=== PATIENT | male | born 1950 | race Caucasian/White ===

== ENCOUNTER 2019-12-23 10:18 | Outpatient (CLI) | payer OTHER ==
[2019-12-23 10:30] LABS: BASOPHILS % (AUTO) 0.7 %; EOSINOPHILS # (AUTO) 0.1 10^3/uL (0.0-0.7); EOSINOPHILS % (AUTO) 1.9 %; HGB - HEMOGLOBIN 12.5 g/dL (14.0-18.0); LYMPHOCYTES # (AUTO) 0.8 10^3/uL (1.5-3.5); MEAN CORPUSCULAR HEMOGLOBIN 31.4 pg (27.0-31.0); MEAN CORPUSCULAR HGB CONC 33.6 g/dL (32.0-36.0); MEAN CORPUSCULAR VOLUME 93.5 fL (80.0-94.0); MONOCYTES # (AUTO) 0.4 10^3/uL (0.0-1.0); MONOCYTES % (AUTO) 6.3 %; NEUTROPHILS # (AUTO) 4.5 10^3/uL (1.5-6.6); NEUTROPHILS % (AUTO) 77.6 %; PLT - PLATELET COUNT 283 10^3/uL (130-450); RED BLOOD COUNT 3.98 10^6/uL (4.70-6.10); RED CELL DISTRIBUTION WIDTH 13.7 % (12.0-15.0); WHITE BLOOD COUNT 5.8 x10^3/uL (4.8-10.8)
[2019-12-23 10:43] LABS: ALBUMIN 4.1 g/dL (3.2-5.5); ALBUMIN/GLOBULIN RATIO 1.7 (1.0-2.2); BILIRUBIN,TOTAL 0.8 mg/dL (0.2-1.0); CALCIUM 8.9 mg/dL (8.5-10.3); CREATININE 0.9 mg/dL (0.6-1.2); TOTAL PROTEIN 6.5 g/dL (6.7-8.2)
[2019-12-26 20:41] LABS: BCR ABL1/ABL1 % (IS) 1.357 (0.000); SOURCE *BLOOD
== END 2019-12-23 10:19 | disposition home or self-care (01) ==
LOC: LAB 10:18
PROVIDERS: ATTEND Internal Medicine Hematology
DX: C92.10 Chronic myeloid leukemia, BCR/ABL-positive, not having achieved remission (principal)
CPT/HCPCS: 36415; 80053; 81206; 85025

== ENCOUNTER 2020-05-26 12:24 | Outpatient (CLI) | payer OTHER ==
[2020-05-26 12:54] LABS: BASOPHILS % (AUTO) 0.8 %; EOSINOPHILS # (AUTO) 0.2 10^3/uL (0.0-0.7); EOSINOPHILS % (AUTO) 2.8 %; HCT - HEMATOCRIT 38.2 % (42.0-52.0); HGB - HEMOGLOBIN 12.7 g/dL (14.0-18.0); LYMPHOCYTES # (AUTO) 0.8 10^3/uL (1.5-3.5); LYMPHOCYTES % (AUTO) 15.7 %; MEAN CORPUSCULAR HEMOGLOBIN 30.8 pg (27.0-31.0); MEAN CORPUSCULAR HGB CONC 33.2 g/dL (32.0-36.0); MEAN CORPUSCULAR VOLUME 92.5 fL (80.0-94.0); MEAN PLATELET VOLUME 9.1 fL (7.4-11.4); MONOCYTES # (AUTO) 0.5 10^3/uL (0.0-1.0); MONOCYTES % (AUTO) 8.9 %; NEUTROPHILS # (AUTO) 3.8 10^3/uL (1.5-6.6); NEUTROPHILS % (AUTO) 71.2 %; PLT - PLATELET COUNT 284 10^3/uL (130-450); RED BLOOD COUNT 4.13 10^6/uL (4.70-6.10); RED CELL DISTRIBUTION WIDTH 13.5 % (12.0-15.0); WHITE BLOOD COUNT 5.3 x10^3/uL (4.8-10.8)
[2020-05-26 13:07] LABS: ALBUMIN 4.1 g/dL (3.2-5.5); ALBUMIN/GLOBULIN RATIO 1.7 (1.0-2.2); BILIRUBIN,TOTAL 0.5 mg/dL (0.2-1.0); CALCIUM 9.2 mg/dL (8.5-10.3); CREATININE 0.9 mg/dL (0.6-1.2); POTASSIUM 3.8 mmol/L (3.5-5.0); TOTAL PROTEIN 6.5 g/dL (6.7-8.2)
[2020-05-26 15:06] LABS: ESTIMATED AVERAGE GLUCOSE 140 mg/dL (70-100); HEMOGLOBIN A1c% 6.5 % (4.27-6.07)
== END 2020-05-26 12:25 | disposition home or self-care (01) ==
LOC: LAB 12:24
PROVIDERS: ATTEND Family Medicine
DX: E11.9 Type 2 diabetes mellitus without complications (principal); C92.10 Chronic myeloid leukemia, BCR/ABL-positive, not having achieved remission
CPT/HCPCS: 36415; 80053; 81206; 81599; 83036; 85025

== ENCOUNTER 2020-08-28 13:12 | Outpatient (CLI) | payer MEDICARE, OTHER ==
[2020-08-28 13:35] LABS: BASOPHILS # (AUTO) 0.1 10^3/uL (0.0-0.1); BASOPHILS % (AUTO) 1.7 %; EOSINOPHILS # (AUTO) 0.2 10^3/uL (0.0-0.7); EOSINOPHILS % (AUTO) 2.8 %; HCT - HEMATOCRIT 39.6 % (42.0-52.0); HGB - HEMOGLOBIN 12.9 g/dL (14.0-18.0); LYMPHOCYTES # (AUTO) 1.3 10^3/uL (1.5-3.5); LYMPHOCYTES % (AUTO) 20.7 %; MEAN CORPUSCULAR HEMOGLOBIN 29.9 pg (27.0-31.0); MEAN CORPUSCULAR HGB CONC 32.6 g/dL (32.0-36.0); MEAN CORPUSCULAR VOLUME 91.9 fL (80.0-94.0); MEAN PLATELET VOLUME 9.4 fL (7.4-11.4); MONOCYTES # (AUTO) 0.5 10^3/uL (0.0-1.0); MONOCYTES % (AUTO) 7.9 %; NEUTROPHILS # (AUTO) 4.2 10^3/uL (1.5-6.6); NEUTROPHILS % (AUTO) 65.8 %; PLT - PLATELET COUNT 364 10^3/uL (130-450); RED BLOOD COUNT 4.31 10^6/uL (4.70-6.10); RED CELL DISTRIBUTION WIDTH 13.2 % (12.0-15.0); WHITE BLOOD COUNT 6.3 x10^3/uL (4.8-10.8)
== END 2020-08-28 13:13 | disposition home or self-care (01) ==
LOC: LAB 13:12
PROVIDERS: ATTEND Internal Medicine Hematology
DX: C92.10 Chronic myeloid leukemia, BCR/ABL-positive, not having achieved remission (principal)
CPT/HCPCS: 36415; 81206; 81599; 85025

== ENCOUNTER 2020-10-13 14:27 | Outpatient (CLI) | payer MEDICARE ==
[2020-10-13 15:08] LABS: BASOPHILS # (AUTO) 0.3 10^3/uL (0.0-0.1); EOSINOPHILS # (AUTO) 0.1 10^3/uL (0.0-0.7); EOSINOPHILS % (AUTO) 1.2 %; HCT - HEMATOCRIT 39.5 % (42.0-52.0); LYMPHOCYTES # (AUTO) 1.3 10^3/uL (1.5-3.5); LYMPHOCYTES % (AUTO) 13.3 %; MEAN CORPUSCULAR HGB CONC 32.9 g/dL (32.0-36.0); MEAN CORPUSCULAR VOLUME 91.2 fL (80.0-94.0); MEAN PLATELET VOLUME 9.1 fL (7.4-11.4); MONOCYTES % (AUTO) 9.9 %; NEUTROPHILS # (AUTO) 6.4 10^3/uL (1.5-6.6); NEUTROPHILS % (AUTO) 65.5 %; PLT - PLATELET COUNT 363 10^3/uL (130-450); RED BLOOD COUNT 4.33 10^6/uL (4.70-6.10); RED CELL DISTRIBUTION WIDTH 13.7 % (12.0-15.0); WHITE BLOOD COUNT 9.8 x10^3/uL (4.8-10.8)
[2020-10-13 15:15] LABS: SLIDE REVIEW? Indicated
[2020-10-13 15:32] LABS: PLATELET ESTIMATE, MANUAL NORMAL (130-450,000) (NORMAL); PLATELET MORPHOLOGY NORMAL APPEARANCE (NORMAL); RBC MORPHOLOGY (MULTIPLE) NORMAL APPEARANCE (NORMAL); WBC MORPHOLOGY (MULTIPLE) NORMAL APPEARANCE (NORMAL)
[2020-10-13 20:04] LABS: ESTIMATED AVERAGE GLUCOSE 171 mg/dL (70-100); HEMOGLOBIN A1c% 7.6 % (4.27-6.07)
[2020-10-16 21:42] LABS: BCR ABL1/ABL1 % (IS) 39.009 (0.000); P210 BCR ABL1 DETECTED; SOURCE WHOLE BLOOD
== END 2020-10-13 14:28 | disposition home or self-care (01) ==
LOC: LAB 14:27
PROVIDERS: ATTEND Family Medicine
DX: C92.10 Chronic myeloid leukemia, BCR/ABL-positive, not having achieved remission (principal)
CPT/HCPCS: 36415; 81206; 83036; 84403; 85025

== ENCOUNTER 2020-11-24 12:09 | Outpatient (CLI) | payer MEDICARE ==
[2020-11-24 12:53] LABS: BASOPHILS % (AUTO) 0.4 %; EOSINOPHILS # (AUTO) 0.2 10^3/uL (0.0-0.7); EOSINOPHILS % (AUTO) 3.1 %; HCT - HEMATOCRIT 33.9 % (42.0-52.0); LYMPHOCYTES # (AUTO) 1.6 10^3/uL (1.5-3.5); LYMPHOCYTES % (AUTO) 30.5 %; MEAN CORPUSCULAR HEMOGLOBIN 30.1 pg (27.0-31.0); MEAN CORPUSCULAR HGB CONC 32.4 g/dL (32.0-36.0); MEAN CORPUSCULAR VOLUME 92.6 fL (80.0-94.0); MONOCYTES # (AUTO) 0.6 10^3/uL (0.0-1.0); MONOCYTES % (AUTO) 11.3 %; NEUTROPHILS # (AUTO) 2.8 10^3/uL (1.5-6.6); NEUTROPHILS % (AUTO) 54.5 %; PLT - PLATELET COUNT 158 10^3/uL (130-450); RED BLOOD COUNT 3.66 10^6/uL (4.70-6.10); RED CELL DISTRIBUTION WIDTH 14.6 % (12.0-15.0); WHITE BLOOD COUNT 5.1 x10^3/uL (4.8-10.8)
[2020-11-24 13:04] LABS: ALBUMIN 4.1 g/dL (3.2-5.5); ALBUMIN/GLOBULIN RATIO 1.9 (1.0-2.2); BILIRUBIN,TOTAL 0.8 mg/dL (0.2-1.0); CREATININE 0.9 mg/dL (0.6-1.2); POTASSIUM 4.1 mmol/L (3.5-5.0); TOTAL PROTEIN 6.3 g/dL (6.7-8.2)
== END 2020-11-24 12:10 | disposition home or self-care (01) ==
LOC: LAB 12:09
PROVIDERS: ATTEND Internal Medicine Hematology
DX: C92.10 Chronic myeloid leukemia, BCR/ABL-positive, not having achieved remission (principal)
CPT/HCPCS: 36415; 80053; 81206; 85025

== ENCOUNTER 2021-02-11 12:03 | Outpatient (CLI) | payer MEDICARE ==
[2021-02-11 12:25] LABS: BASOPHILS # (AUTO) 0.1 10^3/uL (0.0-0.1); BASOPHILS % (AUTO) 0.9 %; EOSINOPHILS # (AUTO) 0.4 10^3/uL (0.0-0.7); EOSINOPHILS % (AUTO) 6.8 %; HCT - HEMATOCRIT 34.8 % (42.0-52.0); LYMPHOCYTES # (AUTO) 0.9 10^3/uL (1.5-3.5); LYMPHOCYTES % (AUTO) 13.5 %; MEAN CORPUSCULAR HGB CONC 31.6 g/dL (32.0-36.0); MEAN CORPUSCULAR VOLUME 91.8 fL (80.0-94.0); MEAN PLATELET VOLUME 9.3 fL (7.4-11.4); MONOCYTES # (AUTO) 0.4 10^3/uL (0.0-1.0); MONOCYTES % (AUTO) 6.8 %; NEUTROPHILS # (AUTO) 4.6 10^3/uL (1.5-6.6); NEUTROPHILS % (AUTO) 71.7 %; PLT - PLATELET COUNT 267 10^3/uL (130-450); RED BLOOD COUNT 3.79 10^6/uL (4.70-6.10); RED CELL DISTRIBUTION WIDTH 14.5 % (12.0-15.0); WHITE BLOOD COUNT 6.4 x10^3/uL (4.8-10.8)
[2021-02-11 12:42] LABS: ALBUMIN 4.3 g/dL (3.2-5.5); ALBUMIN/GLOBULIN RATIO 1.7 (1.0-2.2); BILIRUBIN,TOTAL 0.5 mg/dL (0.2-1.0); CALCIUM 9.2 mg/dL (8.5-10.3); CREATININE 0.9 mg/dL (0.6-1.2); POTASSIUM 3.8 mmol/L (3.5-5.0); TOTAL PROTEIN 6.9 g/dL (6.7-8.2)
== END 2021-02-11 12:04 | disposition home or self-care (01) ==
LOC: LAB 12:03
PROVIDERS: ATTEND Internal Medicine Hematology
DX: C92.10 Chronic myeloid leukemia, BCR/ABL-positive, not having achieved remission (principal)
CPT/HCPCS: 36415; 80053; 81206; 84153; 85025

== ENCOUNTER 2021-05-04 11:37 | Emergency (ER) | payer MEDICARE, OTHER ==
--- NOTE | 2021-05-04 12:32 | ED Physician Documentation ---
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 For last 3 days he has had odd breathing, he feels like he has to think about breathing both in and out. He has some chest squeezing with this but denies pain per se. Denies new pedal edema or calf pain but does have chronic leg cramps and neuropathy related to the CML. Review of Systems Ten Systems: 10 systems reviewed and negative Constitutional: denies: Fever, Chills Cardiac: reports: Pedal edema, Calf pain. denies: Palpitations Respiratory: reports: Dyspnea. denies: Cough, Hemoptysis, Wheezing PD PAST MEDICAL HISTORY - Present Medications Home Medications: Ambulatory Orders Medication Instructions Recorded Confirmed Dasatinib [Sprycel] 100 mg ORAL DAILY 05/04/21 05/04/21 Diazepam [Valium] 10 mg PO DAILY PRN 05/04/21 05/04/21 Docusate Sodium [Dok] 100 mg PO TID PRN 05/04/21 05/04/21 Famotidine 40 mg PO DAILY PRN 05/04/21 05/04/21 HYDROcodone/ACET 10/325 [[place] 10 1 tablet PO Q4-6H PRN 05/04/21 05/04/21 mg/325 mg] Ondansetron Odt [Zofran Odt] 4 mg TL Q6H PRN 05/04/21 05/04/21 Senna [Senokot] 17.2 mg PO TID PRN 05/04/21 05/04/21 - Allergies Allergies/Adverse Reactions: Allergies Allergy/AdvReac Type Severity Reaction Status Date / Time cat dander Allergy Respiratory Verified 05/04/21 12:05 PD ED PE NORMAL - Vitals Vital signs reviewed: Yes - General General: Alert and oriented X 3, No acute distress, Well developed/nourished - Neck Neck: Supple, no meningeal sign, No bony TTP - Cardiac Cardiac: RRR, No murmur - Respiratory Respiratory: No respiratory distress, Clear bilaterally - Abdomen Abdomen: Non tender - Extremities Extremities: No edema, No calf tenderness / cord - Neuro Neuro: Alert and oriented X 3, Normal speech Results - Vitals Vitals: Vital Signs - 24 hr 05/04/21 05/04/21 05/04/21 11:53 13:03 15:07 Temperature 36.3 C L 36.2 C L 36 C L Heart Rate 89 78 77 Respiratory 20 17 22 Rate Blood Pressure 169/75 H 163/79 H 175/96 H O2 Saturation 96 96 97 05/04/21 16:15 Temperature Heart Rate 76 Respiratory 20 Rate Blood Pressure 154/84 H O2 Saturation 97 Oxygen O2 Source Room air - EKG (time done) 1156 Rate: Rate (enter#) (83) Rhythm: NSR [place]: LAD Intervals: Normal [place] QRS: Low voltage Ischemia: Normal ST segments Computer interpretation: Agree with computer - Labs Labs: Laboratory Tests 05/04/21 05/04/21 05/04/21 12:55 12:55 12:55 WBC 6.5 RBC 4.24 L Hgb 12.5 L Hct 38.0 L MCV 89.6 MCH 29.5 MCHC 32.9 RDW 14.9 Plt Count 266 MPV 9.1 Neut # (Auto) 4.8 Lymph # (Auto) 0.8 L [place] # (Auto) 0.5 Eos # (Auto) 0.3 Baso # (Auto) 0.0 Absolute Nucleated RBC 0.00 Nucleated RBC % 0.0 Sodium 144 Potassium 3.9 Chloride 109 Carbon Dioxide 25 Anion Gap 10.0 BUN 19 Creatinine 0.8 Estimated GFR (MDRD) 96 Glucose 155 H Calcium 9.4 Total Bilirubin 0.9 AST 17 ALT 21 Alkaline Phosphatase 71 Troponin I High Sens 6.5 B-Natriuretic Peptide Total Protein 7.1 Albumin 4.3 Globulin 2.8 Albumin/Globulin Ratio 1.5 05/04/21 12:55 WBC RBC Hgb Hct MCV MCH MCHC RDW Plt Count MPV Neut # (Auto) Lymph # (Auto) [place] # (Auto) Eos # (Auto) Baso # (Auto) Absolute Nucleated RBC Nucleated RBC % Sodium Potassium Chloride Carbon Dioxide Anion Gap BUN Creatinine Estimated GFR (MDRD) Glucose Calcium Total Bilirubin AST ALT Alkaline Phosphatase Troponin I High Sens B-Natriuretic Peptide 42 Total Protein Albumin Globulin Albumin/Globulin Ratio Procedures - Thoracentesis Preparation: Consent obtained, Sterile prep and drape, Sitting, Local - lidocaine Technique: Right, Ultrasound used Fluid: Clear, Sent for cytology Aftercare: CXR obtained, No pneumo, No complications, Patient tolerated well PD MEDICAL DECISION MAKING - ED course ED course: This 70-year-old gentleman with history of CML comes in with odd symptoms of feeling like he has to control his breathing with dyspnea. Given his active cancer there is of course a concern for PE. There is no evidence of active cardiac disease on testing here. CT pulmonary angiogram showed what looks like widely metastatic disease with a large right pleural effusion. The pleural effusion was drained and sent for cytology. I discussed the case by phone with his oncologist, Dr. Kelton Rojas and wrote on the cytology request form that he be copied on the results, his fax number [phone]. I also called his primary care physician for discussion. Patient states that he is not planning on aggressive cancer treatment. Discussed with him that it may be worthwhile to at least find a primary with cytology such that immunotherapy could be considered. I also updated his primary care physician, Dr. Ruma Solitario and she will foll ow-up with the patient. Departure - Departure Disposition: 01 Home, Self Care Clinical Impression: Pleural effusion Metastatic cancer Qualifiers: Area of secondary neoplastic involvement: unspecified site Qualified Code(s): C79.9 - Secondary malignant neoplasm of unspecified site Dyspnea Qualifiers: Dyspnea type: shortness of breath Qualified Code(s): R06.02 - Shortness of breath; R06.00 - Dyspnea, unspecified; R06.01 - Orthopnea Condition: Good Record reviewed to determine appropriate education?: Yes Instructions: ED Tumor [facility] Comments: You were seen today for shortness of breath and unfortunately we found that there is evidence that you likely have widely metastatic disease unrelated to your CML. I am attaching a copy of your CAT scan read to these discharge instructions. We did a thoracentesis and this is being sent for cytology which may give a tissue diagnosis and I have asked the lab to copy these results to Dr. Rojas. Follow-up with both Dr. Rojas and Dr. Solitario next week for further evaluation and treatment. Return any time if worse.
[2021-05-04] MEDS ORDERED: iohexoL-300 100 ML VIAL ONE (12:33)
[2021-05-04 13:05] LABS: BASOPHILS % (AUTO) 0.6 %; EOSINOPHILS # (AUTO) 0.3 10^3/uL (0.0-0.7); EOSINOPHILS % (AUTO) 4.6 %; HGB - HEMOGLOBIN 12.5 g/dL (14.0-18.0); LYMPHOCYTES # (AUTO) 0.8 10^3/uL (1.5-3.5); LYMPHOCYTES % (AUTO) 12.3 %; MEAN CORPUSCULAR HEMOGLOBIN 29.5 pg (27.0-31.0); MEAN CORPUSCULAR HGB CONC 32.9 g/dL (32.0-36.0); MEAN CORPUSCULAR VOLUME 89.6 fL (80.0-94.0); MEAN PLATELET VOLUME 9.1 fL (7.4-11.4); MONOCYTES # (AUTO) 0.5 10^3/uL (0.0-1.0); MONOCYTES % (AUTO) 7.7 %; NEUTROPHILS # (AUTO) 4.8 10^3/uL (1.5-6.6); NEUTROPHILS % (AUTO) 74.3 %; PLT - PLATELET COUNT 266 10^3/uL (130-450); RED BLOOD COUNT 4.24 10^6/uL (4.70-6.10); RED CELL DISTRIBUTION WIDTH 14.9 % (12.0-15.0); WHITE BLOOD COUNT 6.5 x10^3/uL (4.8-10.8)
[2021-05-04 13:28] LABS: ALBUMIN 4.3 g/dL (3.2-5.5); ALBUMIN/GLOBULIN RATIO 1.5 (1.0-2.2); BILIRUBIN,TOTAL 0.9 mg/dL (0.2-1.0); CALCIUM 9.4 mg/dL (8.5-10.3); CREATININE 0.8 mg/dL (0.6-1.2); POTASSIUM 3.9 mmol/L (3.5-5.0); TOTAL PROTEIN 7.1 g/dL (6.7-8.2)
[2021-05-04] MEDS ORDERED: iohexoL-300 100 ML VIAL IVP ONE (14:32)
--- NOTE | 2021-05-04 14:45 | CT Report ---
PROCEDURE: ANGIO CHEST W/WO INDICATIONS: dyspnea, pe protocol CONTRAST: IV CONTRAST: Optiray 320 ml: 80 PO CONTRAST: *NO PO CONTRAST TECHNIQUE: After the administration of intravenous contrast, 2 mm axial images were acquired from the pulmonary apices to the posterior costophrenic angles during the arterial phase. In addition, 1 mm lung kernel and 5 mm soft tissue kernel reconstructions were performed. 3-dimensional coronal oblique maximum int ensity projection (MIP) reformats, 8 mm axial MIP, and 5 mm coronal and sagittal MPR reformats were t hen performed through the thorax. For radiation dose reduction, the following was used: automated exp osure control, adjustment of mA and/or kV according to patient size. COMPARISON: None. FINDINGS: Image quality: Excellent. Pulmonary arteries: Pulmonary arteries are normal in size, and demonstrate no intraluminal filling d efects to suggest central pulmonary embolism. Lungs and pleura: Multiple small nodular opacities or pulmonary nodules. For example in the right upp er lobe 0.5 cm, (6/100). Left upper lobe 0.6 cm, (6/82). Consolidative opacity at the right lung base and right infrahilar. Large right pleural effusion. No effusion on the left. No pneumothorax. Centr al and peripheral airways are patent. Mediastinum: Heart size is normal, small pericardial effusion. No mediastinal or hilar adenopathy. Thoracic aorta is normal in caliber and enhancement. Esophagus is normal in caliber, without hiatal hernia. Bones and chest wall: Heterogeneous sclerosis at T2. Sclerotic focus in the left posterior third rib. Additional sclerotic foci within the posterior elements at T4, T5, T6. Sclerotic focus in the lower sternum. Ribs and thoracic spine appear intact throughout. No axillary or supraclavicular adenopathy . The thyroid is normal in size and there are no incidental findings. Abdomen: Large lesion in the right lobe liver with central enhancement and liver contour abnormality. Hypodensity in the region of the caudate lobe. Cholelithiasis. Visualized portions of the pancreas a nd spleen are unremarkable. No adrenal nodule. IMPRESSION: 1. No pulmonary embolism. 2. Large unilateral right pleural effusion. Small pericardial effusion. 3. Multiple small pulmonary nodules or nodular opacities. These are indeterminate for metastatic dise ase. 4. Hypodense lesion in the right lower lobe and caudate lobe. The right lobe lesion demonstrates cent ral enhancement. These are concerning for metastatic disease. -This can further evaluated with CT abdomen and pelvis. 5. Several sclerotic osseous lesions are concerning for metastatic disease. -Bone scan would be helpful to establish the extent of disease. Results were communicated to Dr. Swenson at 05/04/2021 2:40 PM PST. Reviewed by: Ambrocio Baird MD on 05/04/2021 2:44 PM PST Approved by: Ambrocio Baird MD on 05/04/2021 2:44 PM PST Station ID: [id number]
[2021-05-04] MEDS ORDERED: LIDOCAINE 1%-EPI 1:100000 20 ML MDV SUBQ STA (14:52)
[2021-05-04 16:15] VITALS: BP 154/84
--- NOTE | 2021-05-04 16:15 | XRAY Report ---
PROCEDURE: Chest 1 View X-Ray INDICATIONS: Post thoracentesis TECHNIQUE: One view of the chest was acquired. COMPARISON: None FINDINGS: Surgical changes and devices: None. Lungs and pleura: No pleural effusions or pneumothorax. Lungs are clear. Mediastinum: Mediastinal contours appear normal. Heart size is normal. Bones and chest wall: No suspicious bony lesions. Overlying soft tissues appear unremarkable. IMPRESSION: No acute process. Reviewed by: Marcela Galvan MD on 05/04/2021 4:13 PM [facility] Approved by: Marcela Galvan MD on 05/04/2021 4:13 PM [facility] Station ID: [id number]
[2021-05-07 20:51] LABS: BCR ABL1/ABL1 % (IS) 0.019 (0.000); P210 BCR ABL1 DETECTED; SOURCE WHOLE BLOOD
== END 2021-05-04 16:53 | disposition home or self-care (01) ==
LOC: ED 11:37
DX: J90 Pleural effusion, not elsewhere classified (principal); C79.9 Secondary malignant neoplasm of unspecified site; Z85.6 Personal history of leukemia; Z20.822 Contact with and (suspected) exposure to COVID-19
CPT/HCPCS: 32554; 36415; 71045; 71275; 80053; 81206; 83880; 84484; 85025; 87635; 93005; 99284; Q9967

== ENCOUNTER 2021-05-14 12:32 | Emergency (ER) | payer OTHER ==
--- NOTE | 2021-05-14 13:01 | ED Physician Documentation ---
PD HPI DYSPNEA - Stated complaint Stated Complaint: SOA/DIFFICULTY BREATHING - Chief complaint Chief Complaint: Resp - History obtained from History obtained from: Patient - Additional information Additional information: 70-year-old with history of CML who I saw 10 days ago for shortness of breath and was found to have an effusion and a thoracentesis was done with symptomatic relief and during work-up of that was also found to have widely metastatic disease of unknown primary subsequently cytology of the pleural fluid was negative for malignancy. He returns today with worsening shortness of breath. Has an appointment with oncology next week. No tissue diagnosis yet. Review of Systems Ten Systems: 10 systems reviewed and negative Constitutional: denies: Fever, Chills, Fatigue, Weight Loss Cardiac: denies: Chest pain / pressure, Palpitations Respiratory: reports: Dyspnea. denies: Cough PD PAST MEDICAL HISTORY - Past Medical History Cardiovascular: None Respiratory: None Neuro: Migraines, Peripheral neuropathy Endocrine/Autoimmune: None GI: Ulcers : Benign prostate hypertrophy Psych: Anxiety Musculoskeletal: Osteoarthritis Derm: None - Past Surgical History Past Surgical History: Yes General: Other - Present Medications Home Medications: Ambulatory Orders Medication Instructions Recorded Confirmed Dasatinib [Sprycel] 100 mg ORAL DAILY 05/04/21 05/04/21 Diazepam [Valium] 10 mg PO DAILY PRN 05/04/21 05/04/21 Docusate Sodium [Dok] 100 mg PO TID PRN 05/04/21 05/04/21 Famotidine 40 mg PO DAILY PRN 05/04/21 05/04/21 HYDROcodone/ACET 10/325 [[place] 10 1 tablet PO Q4-6H PRN 05/04/21 05/04/21 mg/325 mg] Ondansetron Odt [Zofran Odt] 4 mg TL Q6H PRN 05/04/21 05/04/21 Senna [Senokot] 17.2 mg PO TID PRN 05/04/21 05/04/21 - Allergies Allergies/Adverse Reactions: Allergies Allergy/AdvReac Type Severity Reaction Status Date / Time cat dander Allergy Respiratory Verified 05/14/21 12:44 - Social History Does the pt smoke?: No Smoking Status: Former smoker Does the pt drink ETOH?: No Does the pt have substance abuse?: No - Immunizations Immunizations are current?: Yes PD ED PE NORMAL - Vitals Vital signs reviewed: Yes - General General: Alert and oriented X 3, No acute distress - HEENT HEENT: PERRL, EOMI - Neck Neck: Supple, no meningeal sign, No bony TTP - Cardiac Cardiac: RRR, No murmur - Respiratory Respiratory: Other (diminished R base; slight increase WOB with talking) - Extremities Extremities: No edema, No calf tenderness / cord - Neuro Neuro: Alert and oriented X 3, Normal speech Results - Vitals Vitals: Vital Signs - 24 hr 05/14/21 05/14/21 05/14/21 12:38 15:21 16:18 Temperature 36.7 C 37.0 C 36.7 C Heart Rate 97 66 92 Respiratory 24 20 16 Rate Blood Pressure 171/75 H 168/75 H 177/70 H O2 Saturation 97 99 93 Oxygen O2 Source Room air - Labs Labs: Laboratory Tests 05/14/21 05/14/21 05/14/21 13:10 13:10 13:10 WBC 5.6 RBC 4.08 L Hgb 12.0 L Hct 36.2 L MCV 88.7 MCH 29.4 MCHC 33.1 RDW 14.7 Plt Count 277 MPV 9.0 Neut # (Auto) 4.3 Lymph # (Auto) 0.7 L [place] # (Auto) 0.4 Eos # (Auto) 0.2 Baso # (Auto) 0.1 Absolute Nucleated RBC 0.00 Nucleated RBC % 0.0 PT 12.2 INR 1.1 Sodium 142 Potassium 3.6 Chloride 107 Carbon Dioxide 25 Anion Gap 10.0 BUN 18 Creatinine 0.9 Estimated GFR (MDRD) 83 L Glucose 200 H Calcium 9.0 Carcinoembryonic Ag CA 15-3 Antigen CA 125 Antigen Prostate Specific Ag Free PSA % Free PSA Calc 05/14/21 05/14/21 05/14/21 13:10 13:10 15:17 WBC RBC Hgb Hct MCV MCH MCHC RDW Plt Count MPV Neut # (Auto) Lymph # (Auto) [place] # (Auto) Eos # (Auto) Baso # (Auto) Absolute Nucleated RBC Nucleated RBC % PT INR Sodium Potassium Chloride Carbon Dioxide Anion Gap BUN Creatinine Estimated GFR (MDRD) Glucose Calcium Carcinoembryonic Ag 1.7 CA 15-3 Antigen 5.3 CA 125 Antigen 62.5 H Prostate Specific Ag 3.766 H Free PSA 1.113 % Free PSA Calc 30 - Rads (name of study) 1v cxr Radiology: EMP read contemporaneously (increased pleural effusion, better p thoracentesis without visible complication.) CT A/P Radiology: Final report received, EMP read contemporaneously, See rad report Procedures - Thoracentesis Preparation: Consent obtained, Sterile prep and drape, Sitting, Local - lidocaine Technique: Catheter over needle Fluid: Clear, Cloudy, Other (1.3liters) Aftercare: CXR obtained PD MEDICAL DECISION MAKING - ED course ED course: 70-year-old gentleman with recurrent pleural effusion, thoracentesis done for symptom management and feeling better. CT of the abdomen and pelvis done and findings discussed with him. He has oncology follow-up in 6 days. He has no acute symptoms of colitis, does note chronic diarrhea and a change in stool caliber so I wonder if the thickening of the colon could be his primary. Discussed with him that based on the read of the liver lesion today he may need further work-up before proceeding with a liver biopsy. Departure - Departure Disposition: 01 Home, Self Care Clinical Impression: Metastatic cancer Condition: Good Record reviewed to determine appropriate education?: Yes Comments: As discussed, CT showing probably bony metastases throughout the spine and pelvis, also a concern for thickening of the colon which could be the primary site, and she commented that the lesion in your liver could be a hemangioma versus metastasis. When you see the oncologist they may order an MRI of your liver versus colonoscopy versus some other method of further work-up. Return anytime for worsening symptoms. Discharge Date/Time: 05/14/21 16:20
[2021-05-14 13:21] LABS: BASOPHILS # (AUTO) 0.1 10^3/uL (0.0-0.1); BASOPHILS % (AUTO) 0.9 %; EOSINOPHILS # (AUTO) 0.2 10^3/uL (0.0-0.7); EOSINOPHILS % (AUTO) 3.6 %; HCT - HEMATOCRIT 36.2 % (42.0-52.0); LYMPHOCYTES # (AUTO) 0.7 10^3/uL (1.5-3.5); LYMPHOCYTES % (AUTO) 11.8 %; MEAN CORPUSCULAR HEMOGLOBIN 29.4 pg (27.0-31.0); MEAN CORPUSCULAR HGB CONC 33.1 g/dL (32.0-36.0); MEAN CORPUSCULAR VOLUME 88.7 fL (80.0-94.0); MONOCYTES # (AUTO) 0.4 10^3/uL (0.0-1.0); MONOCYTES % (AUTO) 6.6 %; NEUTROPHILS # (AUTO) 4.3 10^3/uL (1.5-6.6); NEUTROPHILS % (AUTO) 76.9 %; PLT - PLATELET COUNT 277 10^3/uL (130-450); RED BLOOD COUNT 4.08 10^6/uL (4.70-6.10); RED CELL DISTRIBUTION WIDTH 14.7 % (12.0-15.0); WHITE BLOOD COUNT 5.6 x10^3/uL (4.8-10.8)
[2021-05-14] MEDS ORDERED: iohexoL-300 100 ML VIAL ONE (13:23)
[2021-05-14] MEDS ORDERED: IOPAMIDOL-300 50 ML VIAL ONE (13:23)
[2021-05-14 13:26] LABS: CREATININE 0.9 mg/dL (0.6-1.2); POTASSIUM 3.6 mmol/L (3.5-5.0)
[2021-05-14 13:34] LABS: INR 1.1 (0.8-1.2); PT - PROTHROMBIN TIME 12.2 secs (9.9-12.6)
--- NOTE | 2021-05-14 13:43 | XRAY Report ---
PROCEDURE: Chest 1 View X-Ray INDICATIONS: dyspnea, prob recurrent pleural effusion TECHNIQUE: One view of the chest was acquired. COMPARISON: Chest xray 05/04/21 FINDINGS: Surgical changes and devices: None. Lungs and pleura: Mild to moderate right effusion, slightly increased compared to prior exam. Mediastinum: Mediastinal contours appear normal. Heart size is normal. Bones and chest wall: No suspicious bony lesions. Overlying soft tissues appear unremarkable. IMPRESSION: Mild to moderate right pleural effusion, slightly increased. Reviewed by: Evie Mulligan MD on 05/14/2021 1:42 PM PST Approved by: Evie Mulligan MD on 05/14/2021 1:42 PM PST Station ID: [id number]
[2021-05-14 14:12] LABS: PSA FREE 1.113 ng/mL (0.16-2.81)
[2021-05-14 14:13] LABS: PSA TOTAL 3.766 ng/mL (0.000-2.000)
[2021-05-14 14:18] LABS: CA 125 62.5 U/mL (0.0-35.0)
[2021-05-14 14:37] LABS: CA 15-3 5.3 U/mL (0.0-31.3)
--- NOTE | 2021-05-14 14:37 | XRAY Report ---
PROCEDURE: Post Thoracentesis 1V CXR INDICATIONS: post thoracentesis TECHNIQUE: One view of the chest was acquired. COMPARISON: Chest x-ray 05/14/2021 FINDINGS: Surgical changes and devices: None. Lungs and pleura: There is mild right pleural effusion, decreased compared to prior exam. No pneumoth orax. Mediastinum: Mediastinal contours appear normal. Heart size is normal. Bones and chest wall: No suspicious bony lesions. Overlying soft tissues appear unremarkable. IMPRESSION: Decreased right pleural effusion. Reviewed by: Evie Mulligan MD on 05/14/2021 2:36 PM PST Approved by: Evie Mulligan MD on 05/14/2021 2:36 PM PST Station ID: [id number]
[2021-05-14] MEDS ORDERED: iohexoL-300 100 ML VIAL IVP ONE (15:18)
--- NOTE | 2021-05-14 15:37 | CT Report ---
PROCEDURE: Abdomen/Pelvis W INDICATIONS: IV and PO, eval metastatic dz CONTRAST: IV CONTRAST: Isovue 300 ml: 100 PO CONTRAST: *NO PO CONTRAST TECHNIQUE: After the administration of oral and IV contrast, 5 mm thick sections acquired from the diaphragms to the symphysis. 5 mm thick coronal and sagittal reformats were acquired. For radiation dose reducti on, the following was used: automated exposure control, adjustment of mA and/or kV according to norman ent size. COMPARISON: CT chest 05/04/2021 FINDINGS: Image quality: Excellent. ABDOMEN: Lung bases: Mild right effusion, decreased compared to prior exam.. Heart size is normal. Solid organs: There is a heterogeneously enhancing mass within the liver demonstrating areas of perip heral enhancement. Similar smaller focus is noted within the caudate lobe. A third focus of enhanceme nt is identified within the anterior left lobe on series 3 image 11. They are relatively unchanged co mpared to prior exam and suspected represent hemangioma. Gallbladder demonstrates multiple stones. Th e gallbladder is contracted and is relatively unchanged. Biliary system is non dilated. Pancreas enh ances normally. No adrenal nodules. Kidneys demonstrate normal size and enhancement, without hydron ephrosis. Peritoneum and bowel: Bowel loops are nonobstructive. There is thickening of the descending and sigm oid colon with surrounding inflammatory change. Scattered mild diverticula are present. No abscess is identified. No free fluid or free air.. No free fluid or air. Nodes and vessels: No retroperitoneal or mesenteric adenopathy by size criteria. Aorta and inferior vena cava are normal in size. Miscellaneous: No ventral hernias. PELVIS: Genitourinary: Bladder wall thickness is normal. Miscellaneous: Fat-containing ventral hernias are present bilaterally. Bones: There are scattered areas of sclerotic foci identified within the visualized thoracolumbar spi ne. In addition, similar appearing foci are present within the sacrum as well as iliac bones bilatera lly and pubic rami. IMPRESSION: 1. Mild right effusion, decreased compared to prior exam. 2. Multiple foci of sclerosis within the thoracic and lumbar spine as well as pelvic bones as describ ed above highly suspicious for metastatic disease. No superimposed pathologic fracture. 3. Hepatic masses as described above. While these could represent hemangiomas given appearance of per ipheral enhancement, further evaluation with hepatic MRI is recommended for more definitive evaluatio n given history of potential metastatic disease. 4. Thickened appearance of the sigmoid and descending colon with inflammatory change most suggestive of colitis secondary to diverticulitis. No abscess. Reviewed by: Evie Mulligan MD on 05/14/2021 3:36 PM PST Approved by: Evie Mulligan MD on 05/14/2021 3:36 PM PST Station ID: [id number]
[2021-05-14 16:19] VITALS: BP 177/70
== END 2021-05-14 16:20 | disposition home or self-care (01) ==
LOC: ED 12:32
DX: J90 Pleural effusion, not elsewhere classified (principal); C79.51 Secondary malignant neoplasm of bone; C80.1 Malignant (primary) neoplasm, unspecified; R19.7 Diarrhea, unspecified; R93.3 Abnormal findings on diagnostic imaging of other parts of digestive tract; K76.89 Other specified diseases of liver; Z85.6 Personal history of leukemia; Z87.891 Personal history of nicotine dependence
CPT/HCPCS: 32554; 36415; 71045; 74177; 80048; 82378; 84153; 84154; 85025; 85610; 86300; 86301; 86304; 99282; 99284; Q9967

== ENCOUNTER 2021-05-23 08:23 | Outpatient (CLI) | payer OTHER ==
--- NOTE | 2021-05-23 09:57 | XRAY Report ---
PROCEDURE: Post Thoracentesis 1V CXR INDICATIONS: Post Thoracentesis CXR TECHNIQUE: One view of the chest was acquired. COMPARISON: Chest x-ray one view, 05/14/2021. FINDINGS: Surgical changes and devices: None. Lungs and pleura: No pneumothorax. Small residual right effusion. Right apical infiltrate and basil ar atelectasis. Mediastinum: Mediastinal contours appear normal. Heart size is normal. Bones and chest wall: No suspicious bony lesions. Overlying soft tissues appear unremarkable. IMPRESSION: No pneumothorax. Reviewed by: Sonia Graves MD on 05/23/2021 9:55 AM [facility] Approved by: Sonia Graves MD on 05/23/2021 9:55 AM [facility] Station ID: [id number]
[2021-05-23] MEDS ORDERED: lidocaine 1% 20 ML MDV SUBQ ONE (10:39)
--- NOTE | 2021-05-23 10:44 | Ultrasound Report ---
PROCEDURE: Thoracentesis Puncture INDICATIONS: CML TECHNIQUE: The indications, alternatives, benefits, risks, and complications of the procedure were explained to the patient. Written informed consent was obtained and placed in the chart. The chest was examined sonographically, and an appropriate site was chosen for thoracentesis. The skin was prepared and rachel ped in the usual sterile fashion, and 1% lidocaine was infiltrated from the skin down through the ple ural surface. A 19-gauge catheter-covered needle was then introduced into the pleural space, the cat heter was advanced and the needle was withdrawn, and thereafter pleural fluid was aspirated. The cat heter was then removed and a dressing was applied. COMPARISON: None. FINDINGS: Access site: right hemithorax. Needle: One-Step centesis catheter with introducer needle. Fluid volume and description: 1500 mL; pinkish. Fluid sent for diagnostic testing: Not requested by ordering physician. Medications: 1% lidocaine for local anaesthesia. Complications: None; post-procedural chest radiograph is pending to assess for pneumothorax. IMPRESSION: Successful ultrasound-guided thoracentesis. Reviewed by: Sonia Graves MD on 05/23/2021 10:43 AM [facility] Approved by: Sonia Graves MD on 05/23/2021 10:43 AM PST Station ID: [id number]
== END 2021-05-23 08:24 | disposition home or self-care (01) ==
LOC: DI 08:23
PROVIDERS: ATTEND Internal Medicine Hematology
DX: C92.10 Chronic myeloid leukemia, BCR/ABL-positive, not having achieved remission (principal)
CPT/HCPCS: 32555

== ENCOUNTER 2021-05-27 07:33 | Outpatient (CLI) | payer OTHER ==
[2021-05-27] MEDS ORDERED: iohexoL-300 100 ML VIAL ONE (07:52)
[2021-05-27] MEDS ORDERED: iohexoL-300 100 ML VIAL IVP ONE (09:13)
--- NOTE | 2021-05-27 10:00 | CT Report ---
PROCEDURE: ABDOMEN W/WO INDICATIONS: LIVER MASSES, CML CONTRAST: IV CONTRAST: Isovue 300 ml: 100 PO CONTRAST: *NO PO CONTRAST TECHNIQUE: 4 phase scanning was performed. After the administration of intravenous contrast, 5 mm thick section s acquired from the diaphragm to the symphysis. 5 mm coronal and sagittal reformats were acquired. For radiation dose reduction, the following was used: automated exposure control, adjustment of mA a nd/or kV according to patient size. COMPARISON: CT abdomen pelvis 05/14/2021, CT chest 05/04/2021. FINDINGS: Image quality: Excellent. Lung bases: There is a moderate size right pleural effusion with associated compressive atelectasis in the right lung base. The heart is at the upper limits of normal in size with a small pericardial e ffusion. Liver: There is a large lobulated mass within the right hepatic lobe measuring approximately 11.2 x 6.4 x 7.4 cm which demonstrates hypoenhancement centrally on the arterial phase with discontinuous pe ripheral eccentric hypervascular enhancement. There is progressive centripetal internal hypervascular enhancement on the portal venous and delayed phases. The findings are consistent with a cavernous he mangioma. Internally within the this large hemangioma, there is an oval hypoattenuating mass measuring 5.1 x 4. 0 x 2.7 cm which demonstrates indistinct intrinsic areas of internal hyperdensity suggestive of hemor rhage. This mass demonstrates hypoenhancement relative to the liver on the arterial, portal venous, a nd delayed phases. The findings are suspicious for hepatic involvement of lymphoma. Within the caudate lobe, there is an oval mass measuring 4.4 x 3.5 x 4.2 cm which demonstrates eccent johanna is continues peripheral hypervascular enhancement on the arterial phase with progressive centripe josé internal enhancement on the portal venous and delayed phases also consistent with a cavernous hem angioma. Elsewhere, within the liver, there is a smaller oval mass inferiorly in segment 5 measuring 1.4 x 1 3 cm on series 5 image 32 which demonstrates eccentric peripheral hypervascular enhancement and increa sed centripetal enhancement on the portal venous phase also likely representing a small hemangioma. 2 within segment 2 of the left hepatic lobe, there are 2 small hypervascular enhancing foci on series 5 images 13 and 14 measuring up to 0.9 cm. These demonstrate isointense enhancement on the portal ve nous and delayed phases without evidence of washout. The findings likely represent small flash fillin g hemangiomas. Other solid organs: Multiple calcified gallstones are demonstrated within the partially distended mykel dder. No bladder wall thickening or pericholecystic fat stranding. Biliary system is non dilated. Pa ncreas is normal in morphology. Spleen is normal in size and enhancement. No adrenal nodules. Kidne ys demonstrate no hydronephrosis. Within the medial left renal cortex, there is an oval heterogeneous lesion measuring up to 2.0 x 1.7 cm in transverse dimension which demonstrate internal solid enhanci ng components. Findings are suspicious for renal cell carcinoma. 2 additional hypodense foci within t he left kidney likely represent cysts. Nodes and vessels: No retroperitoneal or mesenteric adenopathy by size criteria. Aorta and inferior vena cava are normal in size. Bowel and peritoneum: Visualized bowel loops are normal in caliber. No free fluid or air. Bones: There is diffuse heterogeneous appearance of the visualized osseous structures with numerous i ndistinct lucent lesions. Findings are suspicious for involvement of lymphoma. There is a sclerotic l esion within the L5 vertebral body measuring up to 1.5 cm which is nonspecific and may represent a sabina [place] but the differential includes lymphoma. No vertebral body compression fractures. Miscellaneous: No ventral hernias. IMPRESSION: 1. Multiple hepatic mass lesions with imaging findings consistent with cavernous hemangiomas with the largest in the right hepatic lobe measuring up to 5.1 cm. 2. Within the largest hemangioma, there is an oval mass with internal areas of hyperdensity likely re presenting hemorrhage (versus calcification) which demonstrate hypoenhancement relative to the liver on all phases. The findings are suspicious for hepatic involvement of lymphoma. 3. Small hypervascular foci within the left hepatic lobe likely represent flash filling hemangiomas. 4. No abdominal lymphadenopathy by size criteria. 5. Left renal mass with enhancing solid internal components suspicious for renal cell carcinoma. The differential also includes lymphoma but the imaging appearance is atypical. 6. Cholelithiasis without CT evidence of cholecystitis. Reviewed by: Elver Kent MD on 05/27/2021 9:59 AM PST Approved by: Elver Kent MD on 05/27/2021 9:59 AM PST Station ID: [id number]
== END 2021-05-27 07:34 | disposition home or self-care (01) ==
LOC: DI 07:33
PROVIDERS: ATTEND Internal Medicine Hematology & Oncology
DX: C92.10 Chronic myeloid leukemia, BCR/ABL-positive, not having achieved remission (principal); R16.0 Hepatomegaly, not elsewhere classified; N28.89 Other specified disorders of kidney and ureter; K80.20 Calculus of gallbladder without cholecystitis without obstruction
CPT/HCPCS: 74170; Q9967

== ENCOUNTER 2021-05-31 08:29 | Outpatient (CLI) | payer OTHER ==
[2021-05-31] MEDS ORDERED: lidocaine 1% 20 ML MDV ONE (08:45)
--- NOTE | 2021-05-31 10:11 | XRAY Report ---
PROCEDURE: Post Thoracentesis 1V CXR INDICATIONS: Postthoracentesis TECHNIQUE: One view of the chest was acquired. COMPARISON: Prior chest radiograph FINDINGS: Surgical changes and devices: None. Lungs and pleura: No visible pleural effusion or findings of pneumothorax. The lungs are clear. Mediastinum: Mediastinal contours appear normal. Heart size is normal. Bones and chest wall: No suspicious bony lesions. Overlying soft tissues appear unremarkable. IMPRESSION: No evidence of pleural effusion or pneumothorax. Reviewed by: Victor M Cardoso MD on 05/31/2021 10:10 AM PST Approved by: Victor M Cardoso MD on 05/31/2021 10:10 AM PST Station ID: [id number]
--- NOTE | 2021-05-31 10:12 | Ultrasound Report ---
PROCEDURE: Thoracentesis Puncture INDICATIONS: CML, LIVER MASSES TECHNIQUE: The indications, alternatives, benefits, risks, and complications of the procedure were explained to the patient. Written informed consent was obtained and placed in the chart. The chest was examined sonographically, and an appropriate site was chosen for thoracentesis. The skin was prepared and rachel ped in the usual sterile fashion, and 1% lidocaine was infiltrated from the skin down through the ple ural surface. A 19-gauge catheter-covered needle was then introduced into the pleural space, the cat heter was advanced and the needle was withdrawn, and thereafter pleural fluid was aspirated. The cat heter was then removed and a dressing was applied. COMPARISON: None. FINDINGS: Access site: Right posterior-inferior hemithorax. Needle: One-Step centesis catheter with introducer needle. Fluid volume and description: 2.0 translucent series Fluid sent for diagnostic testing: Not requested Medications: 1% lidocaine for local anaesthesia. Complications: None; post-procedural chest radiograph is pending to assess for pneumothorax. IMPRESSION: Successful ultrasound-guided thoracentesis. Reviewed by: Victor M Cardoso MD on 05/31/2021 10:11 AM PST Approved by: Victor M Cardoso MD on 05/31/2021 10:11 AM PST Station ID: [id number]
[2021-05-31] MEDS ORDERED: lidocaine 1% 20 ML MDV SUBQ ONE (10:16)
== END 2021-05-31 08:30 | disposition home or self-care (01) ==
LOC: DI 08:29
PROVIDERS: ATTEND Internal Medicine Hematology & Oncology
DX: R16.0 Hepatomegaly, not elsewhere classified (principal)
CPT/HCPCS: 32555

== ENCOUNTER 2021-06-02 08:11 | Outpatient (CLI) | payer OTHER ==
[2021-06-02] MEDS ORDERED: LACTATED RINGERS 1,000 ML IV ONE (08:18)
[2021-06-02] MEDS ORDERED: lidocaine 1% 20 ML MDV ONE (09:01)
[2021-06-02 09:03] LABS: HGB - HEMOGLOBIN 11.3 g/dL (14.0-18.0)
[2021-06-02 09:07] LABS: INR 1.1 (0.8-1.2); PT - PROTHROMBIN TIME 12.7 secs (9.9-12.6)
[2021-06-02 09:14] LABS: PARTIAL THROMBOPLASTIN TIME 35.8 secs (24.9-33.3)
[2021-06-02] MEDS ORDERED: MIDAZOLAM 2 MG/2 ML VIAL ONE (09:29)
[2021-06-02] MEDS ORDERED: fentaNYL 100 MCG/2 ML VIAL ONE (09:29)
[2021-06-02] MEDS ORDERED: ONDANSETRON 4 MG/2 ML VIAL ONE (09:56)
[2021-06-02] MEDS ORDERED: LACTATED RINGERS 600 ML IV ONE (10:21)
--- NOTE | 2021-06-02 12:24 | CT Report ---
PROCEDURE: LIVER BX PERC Sedation analgesia for 10 minutes. INDICATIONS: Liver Mass TECHNIQUE: The indications, alternatives, benefits, risks, and possible complications of the procedure were comm unicated to the patient. Informed written consent from the patient was obtained and placed in the art. Continuous EKG and hemodynamic monitoring was started by trained personnel. For radiation dose reduction, the following was used: automated exposure control, adjustment of mA and/or kV according to patient size. The patient was brought to the CT suite and chiller tender spiral CT imaging was performed with localization g rid. The appropriate site for percutaneous access to the biopsy target was marked, was prepped and d raped sterilely, and was infused with local anaesthesia. Under CT guidance, a core biopsy trocar and needle set was advanced to the biopsy target, and specimen(s) were obtained. The trocar and needle were then removed, and the patient was sent for post-procedure monitoring. COMPARISON: None. FINDINGS: Biopsy site: Inferior right hepatic lobe Needle: 18 gauge biopsy needle with introducer trocar. Number of passes: 3 Medications: 1% lidocaine for local anaesthesia. IV Fentanyl and Versed for conscious sedation for 10 minutes (see nursing record). Complications: None. IMPRESSION: Technically successful guided biopsy of inferior right hepatic lobe mass. Reviewed by: Victor M Cardoso MD on 06/02/2021 12:23 PM PST Approved by: Victor M Cardoso MD on 06/02/2021 12:23 PM PST Station ID: [id number]
[2021-06-02 14:29] VITALS: BP 144/76
[2021-06-02] MEDS ORDERED: lidocaine 1% 20 ML MDV SUBQ ONE (16:10)
== END 2021-06-02 08:12 | disposition home or self-care (01) ==
LOC: DI 08:11
PROVIDERS: ATTEND Internal Medicine Hematology & Oncology
DX: C80.1 Malignant (primary) neoplasm, unspecified (principal); D18.09 Hemangioma of other sites
CPT/HCPCS: 36415; 47000; 85014; 85018; 85049; 85610; 85730; J7120

== ENCOUNTER 2021-06-06 08:20 | Outpatient (CLI) | payer OTHER ==
[2021-06-06] MEDS ORDERED: lidocaine 1% 20 ML MDV ONE (08:45)
--- NOTE | 2021-06-06 10:07 | XRAY Report ---
PROCEDURE: Post Thoracentesis 1V CXR INDICATIONS: POST THORACENTISIS TECHNIQUE: One view of the chest was acquired. COMPARISON: Chest x-ray 05/14/2021 FINDINGS: Surgical changes and devices: None. Lungs and pleura: Mild right pleural effusion, decreased compared to prior exam. No pneumothorax. Mediastinum: Mediastinal contours appear normal. Heart size is enlarged. Bones and chest wall: No suspicious bony lesions. Overlying soft tissues appear unremarkable. IMPRESSION: Decreased right pleural effusion. No pneumothorax. Reviewed by: Evie Mulligan MD on 06/06/2021 10:05 AM [facility] Approved by: Evie Mulligan MD on 06/06/2021 10:05 AM [facility] Station ID: [id number]
[2021-06-06] MEDS ORDERED: lidocaine 1% 20 ML MDV SUBQ ONE (10:42)
--- NOTE | 2021-06-06 16:30 | Ultrasound Report ---
PROCEDURE: Thoracentesis Puncture INDICATIONS: CML, LIVER MASSES TECHNIQUE: The indications, alternatives, benefits, risks, and complications of the procedure were explained to the patient. Written informed consent was obtained and placed in the chart. The chest was examined sonographically, and an appropriate site was chosen for thoracentesis. The skin was prepared and rachel ped in the usual sterile fashion, and 1% lidocaine was infiltrated from the skin down through the ple ural surface. A 19-gauge catheter-covered needle was then introduced into the pleural space, the cat heter was advanced and the needle was withdrawn, and thereafter pleural fluid was aspirated. The cat heter was then removed and a dressing was applied. COMPARISON: None. FINDINGS: Access site: Right hemithorax. Needle: One-Step centesis catheter with introducer needle. Fluid volume and description: Serosanguineous 960 cc Fluid sent for diagnostic testing: Yes Medications: 1% lidocaine for local anaesthesia. Complications: None; post-procedural chest radiograph is pending to assess for pneumothorax. IMPRESSION: Successful ultrasound-guided thoracentesis. Reviewed by: Evie Mulligan MD on 06/06/2021 4:28 PM PST Approved by: Evie Mulligan MD on 06/06/2021 4:28 PM PST Station ID: [id number]
== END 2021-06-06 08:21 | disposition home or self-care (01) ==
LOC: DI 08:20
PROVIDERS: ATTEND Internal Medicine Hematology & Oncology
DX: C92.10 Chronic myeloid leukemia, BCR/ABL-positive, not having achieved remission (principal); C78.7 Secondary malignant neoplasm of liver and intrahepatic bile duct; C79.51 Secondary malignant neoplasm of bone; J90 Pleural effusion, not elsewhere classified
CPT/HCPCS: 32555

== ENCOUNTER 2021-06-07 09:00 | Outpatient (CLI) | payer OTHER ==
--- NOTE | 2021-06-07 21:17 | CONSULTATION NOTE ---
Palliative Care Consultation - Referral Referring Provider: Dr. Ruma Solitario Time of Visit: 3739-8900 Referral setting: Home Referral Reason: Met Ca unknown origin/constipation/anxiety/ACP - Information Sources Records reviewed: Previous records reviewed History/Review of Systems obtained from: Patient Exam limitations: No limitations - History of Present Illness Brief History of Present Illness: This is a 70-year-old gentleman with CML since 2010, had been originally on Gleevec, now on Sprycel since 02/17. He was seen in the emergency department 05/04/2021 for complaints of worsening shortness of breath, was worked up with a CT pulmonary angiogram with what looked like widely metastatic disease with a large pleural effusion. He was tapped, and drained and fluid was sent for cytology. He is since seen Dr. Maier, completed liver protocol CT scan with guided biopsy, awaiting results with appointment this Sunday. Patient has also had recurrent right pleural effusions, requiring frequent thoracentesis. He does get quite symptomatic with this with increased shortness of breath. He has an oncologist at [facility], Dr. Kelton Rojas, who had him stop his Sprycel for 4 weeks, as one of the listed side effects is pleural effusions. He has been off it 6 days, and indeed his last pleural effusion was less fluid. He is scheduled again next Sunday. Patient has been very intimately involved in his care, has followed his counts, is very informed on his CML, and does appear quite anxious about pending res ults. Patient has been talking to multiple providers regarding his current situation, and is unconvinced at this point in time, he even has metastatic disease. He is hopeful that this is correct, or that he does have options particularly in the context of immunotherapy. Patient presents with fairly low symptom burden, he does have headaches, which he attributes to side effects of his treatment as well is chronic migraines. He does take hydrocodone 20 mg twice a day, has been experiencing increased constipation. Reports he had a bad experience with "fentanyl" with his liver biopsy. He reports he has chronic right sided pain, he attributes this to gallstones versus liver discomfort. He does feel like he is having increased trouble with swallowing, and describes a fairly eclectic lifestyle and journey over the last several years. He does admit to underlying anxiety, does use Valium, has had some weight loss. 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 Medical/Surgical History - Past Medical History Cardiovascular: reports: None Respiratory: reports: Shortness of breath, Other (recurrent pleural effusions) Neuro: Migraines, Peripheral neuropathy Endocrine/Autoimmune: reports: None GI: reports: Ulcers, Chronic constipation, Cholelithiasis : reports: Benign prostate hypertrophy HEENT: reports: None Psych: reports: Anxiety Musculoskeletal: reports: Osteoarthritis Derm: reports: None MRSA Hx?: No - Past Surgical History General: reports: Other (liver bx; umbilical hernia repair) Social History - Living Situation Living arrangement: At home Living Situation: Alone Support System: Patient is a musician, he spent many years looking for home in the context of finding oncology support he liked. He was in [place], was living in a hotel. He now lives in an apartment provided by a friend from his past. It does require going up stairs, but so far has been doing okay with this. He has recently given up driving, and is using [employer] services for transportation.He is very dependent on his friend Delvin Lutz, who is his DPOA.He does spend quite a bit of time managing his healthcare, and is attempting to put together a "team" here, but does depend a lot on his oncologist Dr. Rojas at [facility]. Family History - Family History Family History: Mother: (lung cancer 52), Alzheimer's Disease ( at 82 ), Father: , CVA/TIA ( at 86), Sister: Medications/Allergies - Medications Home Medications: Ambulatory Orders Medication Instructions Recorded Confirmed Dasatinib [Sprycel] 100 mg ORAL DAILY MDD ON HOLD FOR 05/04/21 06/08/21 4 WEEKS Diazepam [Valium] 10 mg PO DAILY PRN 05/04/21 06/08/21 Famotidine 40 mg PO DAILY PRN 05/04/21 06/08/21 HYDROcodone/ACET 10/325 [Victoria 10 1 tablet PO Q4-6H PRN 05/04/21 06/08/21 mg/325 mg] Ondansetron Odt [Zofran Odt] 4 mg TL Q6H PRN 05/04/21 06/08/21 Senna [Senokot] 17.2 mg PO TID PRN 05/04/21 06/08/21 Magnesium Chloride [Magnesium] 1 tab PO PRN PRN 06/02/21 06/08/21 - Allergies Allergies/Adverse Reactions: Allergies Allergy/AdvReac Type Severity Reaction Status Date / Time cat dander Allergy Respiratory Verified 05/14/21 12:44 Review of Systems - Constitutional Constitutional: reports: Fatigue (persistent), Weakness, Weight loss - Cardiovascular Cardiovascular: reports: Decr. exercise tolerance - Respiratory Respiratory: denies: SOB at rest - Gastrointestinal Gastrointestinal: reports: Constipation, Early satiety - Musculoskeletal Musculoskeletal: reports: Stiffness, Muscle weakness - Integumentary Integumentary: reports: Dryness - Neurological Neurological: reports: General weakness, Numbness (peripheral numbness) - Psychiatric Psychiatric: reports: Anxiety - Endocrine Endocrine: reports: Intolerance to cold - Hematologic/Lymphatic Hematologic/Lymph: reports: Anemia (11.3) - All Other Systems All Other Systems: reports: Reviewed and negative Physical Exam - Vital Signs Temperature: 97.0 C Pulse Rate: 70 Respiratory Rate: 18 O2 Saturation: 97 (ra @ rest) Blood Pressure: 128/74 - Physical Exam General Appearance: positive: No acute distress, Alert, Anxious Eyes Bilateral: positive: Normal inspection ENT: positive: No signs of dehydration Neck: positive: Trachea midline Cardiovascular: positive: Regular rate & rhythm Respiratory: positive: No respiratory distress, Other (diminished lower 1/4 Rig ht lower lung; recent thoracentesis) Abdomen: positive: Other (rounded and firm) Skin: positive: Pallor, Dryness Extremities: positive: Full ROM Neurologic/Psychiatric: positive: Oriented x3, Flat affect, Other (very anxious/talkative) Palliative Care - POLST Patient has POLST: No POLST Status: DNR (working on directives) Pain: Pain unchanged, Location (headaches/right upper quadrant fluctuating) Depression: Moderate (4-6) Anxiety: Severe (7-10) Feelings of wellbeing/Perceived Quality of Life: Fair, Worsening (awaiting outcome of bx for course of treatment) Sleep: Sleeps well Constipation: Yes, Unmanaged Performance Status: Patient lives on a single level, but it is one flight of stairs to his apartment. He is ambulatory and can manage his ADLs, he no longer drives. - Palliative Care Discussion: Patient has identified Delvin Lutz his friend unfortunately he lives in [place]. His phone number is [phone] as his DURABLE POWER OF FLORIST for medical, legal, and financial. They are currently working on documents. Patient has had a fairly eclectic life, but he is a musician, is working on his Legacy as far as his music. He very much misses teaching. In the context of his coping, he reports he is "not sad", his beliefs are in alignment with [employer]. He does not believe his is imminent, he tries to stay in the present and sees this as an opportunity to "wake up", though found the news in April fairly "brutal". Patient had been working on his end-of-life plan, did receive an informational visit from [facility]. He does not have any pers onal caregivers, is planning possibly to transition to [facility] inpatient hospice.Currently though he is in the process of "collecting data". He does no know if he needs to be prepared to go in 3 weeks or months, he has had many friends and physicians weighing in on his scans and situation, and is not convinced at this point that he has serious disease. He is entertaining the idea they are as a result of side effects of his Sprycel. He will be meeting with oncology on Sunday for results of the biopsy, hoping this will inform his course. He is quite anxious in the meantime, and reports that gathering information and understanding his situation helps him cope. He has been managing his disease of CML for many years, and is very immersed in the process. Patient is very talkative, did introduce the role of palliative care, patient actually has fairly light symptom burden at this time, will aligned with goals and outcome for treatment plan for further support needs. Did introduce the [facility], particularly since patient verbalized was wants to be a do not attempt resuscitation. Provided patient with a DPOA form, and encouraged to continue to finish his end-of-life documents. Results - Lab Results Lab results reviewed: Yes Impression and Recommendations - Palliative Care Impression: This is a 70-year-old gentleman who presents with high anxiety, metastatic cancer with liver masses, bone lesions, recurrent pleural effusions and colonic thickening seen on CT. Patient this point in time does not have results of biopsy, nor treatment plan defined. He is meeting with oncology this Sunday. Patient long-term CML with diagnosis 2016, current Sprycel on hold x6 days with concern for possible etiology of pleural effusion side effect. Patient presents with minimal caregiving support though identifies several social supports through friends and medical team. Palliative care meeting patient today for establishing rapport, identifying symptom burden, will await outcome of biopsy/oncology plan to further define role for support. Recommendations/Counseling Done: 1. Metastatic cancer of unknown origin with suspected liver masses, bone lesions, and recurrent pleural effusions. Patient with recent biopsy, pending outcome this Sunday with oncology. This will inform in the context of moving forward treatment plan or further evaluation. 2. Recurrent pleural effusions. Patient at this point is scheduled weekly for thoracentesis, has tolerated fairly well. Does get symptomatic, reports less fluid this last time is hoping it is influenced by Sprycel. 3. CML. Patient has been receiving Sprycel since 01/2021. Reports side effects of headache, and fatigue. Currently on hold x6 days. Awaiting outcome of current treatment plan. 4. Right upper quadrant pain. Patient reports also has had history of gallst ones, uses hydrocodone 10 mg / 325 mg twice a day, with associated constipation. Denies sedation or nausea. 5. Constipation. Counseling provided regarding bowel program, recommended MiraLAX 1 capful daily for softening and senna 1-2 tabs twice daily. Patient taking high doses of magnesium, recommended to take supplemental dose only. 6. Anxiety. Patient is quite resistant to considering SSRIs or antidepressants as adjuvant. Patient is depending on his [employer] practice, music, and support from friends. He does use intermittent "Valium". He also ryan by collecting information, and frequent interventions with his healthcare team. 7. Advanced care planning. Patient is initiating work on his advance care planning documents, at this point in time still need to define treatment plan or extent of illness. Did introduce the POLST, provided DPOA form for medical power of order administrator, recommended continue working on end-of-life documents no matter the outcome of Sunday's visit. Palliative care to follow for support, patient has only mild symptom burden, will continue to define plan of care as information is available 75 minutes with greater than 50% spent in counseling for goals of care, symptom management, establishing rapport, defining role of palliative care support
== END 2021-06-07 09:01 | disposition home or self-care (01) ==
LOC: PC 09:00
PROVIDERS: ATTEND Nurse Practitioner Adult Health
DX: Z51.5 Encounter for palliative care (principal); F41.9 Anxiety disorder, unspecified; J90 Pleural effusion, not elsewhere classified; C80.1 Malignant (primary) neoplasm, unspecified; R93.5 Abnormal findings on diagnostic imaging of other abdominal regions, including retroperitoneum; R93.7 Abnormal findings on diagnostic imaging of other parts of musculoskeletal system; R13.10 Dysphagia, unspecified; R53.1 Weakness; R63.4 Abnormal weight loss; C92.10 Chronic myeloid leukemia, BCR/ABL-positive, not having achieved remission; G44.40 Drug-induced headache, not elsewhere classified, not intractable; R53.83 Other fatigue; T45.1X5A Adverse effect of antineoplastic and immunosuppressive drugs, initial encounter; K59.03 Drug induced constipation; R10.11 Right upper quadrant pain; T40.2X5A Adverse effect of other opioids, initial encounter; Z79.899 Other long term (current) drug therapy; Z79.891 Long term (current) use of opiate analgesic; Z80.1 Family history of malignant neoplasm of trachea, bronchus and lung
CPT/HCPCS: 99345

== ENCOUNTER 2021-06-13 11:50 | Outpatient (CLI) | payer OTHER ==
--- NOTE | 2021-06-13 13:31 | XRAY Report ---
PROCEDURE: Post Thoracentesis 1V CXR INDICATIONS: POST THORACENTESIS TECHNIQUE: One view of the chest was acquired. COMPARISON: 06/06/2021 FINDINGS: Surgical changes and devices: None. Lungs and pleura: No right-sided pneumothorax. Small residual blunting at the right costophrenic angl e suggesting trace residual effusion or pleural tethering.. Lungs are clear. Mediastinum: Mediastinal contours appear normal. Heart size is normal. Bones and chest wall: No suspicious bony lesions. Overlying soft tissues appear unremarkable. IMPRESSION: No pneumothorax post right thoracentesis. Reviewed by: Natalie Rogers MD on 06/13/2021 1:30 PM PST Approved by: Natalei Rogers MD on 06/13/2021 1:30 PM PST Station ID: [id number]
--- NOTE | 2021-06-13 16:09 | Ultrasound Report ---
PROCEDURE: Thoracentesis Puncture INDICATIONS: CML, LIVER MASSES TECHNIQUE: The indications, alternatives, benefits, risks, and complications of the procedure were explained to the patient. Written informed consent was obtained and placed in the chart. The chest was examined sonographically, and an appropriate site was chosen for thoracentesis. The skin was prepared and rachel ped in the usual sterile fashion, and 1% lidocaine was infiltrated from the skin down through the ple ural surface. A 19-gauge catheter-covered needle was then introduced into the pleural space, the cat heter was advanced and the needle was withdrawn, and thereafter pleural fluid was aspirated. The cat heter was then removed and a dressing was applied. COMPARISON: 06/06/2021 FINDINGS: Access site: Right hemithorax. Needle: One-Step centesis catheter with introducer needle. Fluid volume and description: 860 cc Fluid sent for diagnostic testing: Yes Medications: 1% lidocaine for local anaesthesia. Complications: None; post-procedural chest radiograph is pending to assess for pneumothorax. IMPRESSION: Successful ultrasound-guided thoracentesis. Reviewed by: Natalie Rogers MD on 06/13/2021 4:08 PM PST Approved by: Natalie Rogers MD on 06/13/2021 4:08 PM PST Station ID: [id number]
== END 2021-06-13 11:51 | disposition home or self-care (01) ==
LOC: DI 11:50
PROVIDERS: ATTEND Internal Medicine Hematology & Oncology
DX: C92.10 Chronic myeloid leukemia, BCR/ABL-positive, not having achieved remission (principal); C78.7 Secondary malignant neoplasm of liver and intrahepatic bile duct; C79.51 Secondary malignant neoplasm of bone
CPT/HCPCS: 32555

== ENCOUNTER 2021-06-22 07:50 | Emergency (ER) | payer MEDICARE, OTHER ==
--- NOTE | 2021-06-22 08:36 | ED Physician Documentation ---
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 Recent new dx R pleural effusion and in combo with liver/bone masses, thought to be metastatic dz. Now thought to be due to sprycel as cytology x4 negative for malignancy and bx of liver mass on 06/09 c/w hemangioma. R midaxillary line pain mid abd starting 06/15, sharp, worse with movement, coughing, pressure on that side. PD PAST MEDICAL HISTORY - Past Medical History Cardiovascular: None Respiratory: Shortness of breath, Other (recurrent pleural effusions) Neuro: Migraines, Peripheral neuropathy Endocrine/Autoimmune: None GI: Ulcers, Chronic constipation, Cholelithiasis : Benign prostate hypertrophy HEENT: None Psych: Anxiety Musculoskeletal: Osteoarthritis Derm: None - Past Surgical History Past Surgical History: Yes General: Other (liver bx; umbilical hernia repair) - Present Medications Home Medications: Ambulatory Orders Medication Instructions Recorded Confirmed Dasatinib [Sprycel] 100 mg ORAL DAILY MDD ON HOLD FOR 05/04/21 06/10/21 4 WEEKS Diazepam [Valium] 10 mg PO DAILY PRN 05/04/21 06/10/21 Famotidine 40 mg PO DAILY PRN 05/04/21 06/10/21 HYDROcodone/ACET 10/325 [Tornado 10 1 tablet PO Q4-6H PRN 05/04/21 06/10/21 mg/325 mg] Ondansetron Odt [Zofran Odt] 4 mg TL Q6H PRN 05/04/21 06/10/21 Senna [Senokot] 17.2 mg PO TID PRN 05/04/21 06/10/21 Magnesium Chloride [Magnesium] 1 tab PO PRN PRN 06/02/21 06/10/21 - Allergies Allergies/Adverse Reactions: Allergies Allergy/AdvReac Type Severity Reaction Status Date / Time cat dander Allergy Respiratory Verified 06/22/21 08:02 - Social History Does the pt smoke?: No Smoking Status: Former smoker Does the pt drink ETOH?: No Does the pt have substance abuse?: No - Immunizations Immunizations are current?: Yes - POLST Patient has POLST: No PD ED PE NORMAL - Vitals Vital signs reviewed: Yes - General General: Alert and oriented X 3, No acute distress - HEENT HEENT: PERRL, EOMI - Neck Neck: Supple, no meningeal sign, No bony TTP - Cardiac Cardiac: RRR, No murmur - Respiratory Respiratory: No respiratory distress, Other (decreased BS r>L) - Abdomen Abdomen: Normal bowel sounds, Soft, Non tender - Back Back: No CVA TTP, No spinal TTP - Derm Derm: Normal color, Warm and dry - Extremities Extremities: No edema, No calf tenderness / cord - Neuro Neuro: Alert and oriented X 3, Normal speech - Psych Psych: Normal mood, Normal affect Results - Vitals Vitals: Vital Signs - 24 hr 06/22/21 06/22/21 07:57 10:57 Temperature 35.7 C L 36.6 C Heart Rate 83 59 L Respiratory 16 16 Rate Blood Pressure 132/82 H 143/81 H O2 Saturation 96 96 Oxygen O2 Source Room air - Labs Labs: Laboratory Tests 06/22/21 06/22/21 08:45 08:45 WBC 6.0 RBC 4.39 L Hgb 12.9 L Hct 38.6 L MCV 87.9 MCH 29.4 MCHC 33.4 RDW 13.2 Plt Count 266 MPV 9.0 Neut # (Auto) 4.1 Lymph # (Auto) 1.1 L Labette # (Auto) 0.5 Eos # (Auto) 0.2 Baso # (Auto) 0.0 Absolute Nucleated RBC 0.00 Nucleated RBC % 0.0 Sodium 139 Potassium 4.0 Chloride 107 Carbon Dioxide 26 Anion Gap 6.0 BUN 22 H Creatinine 0.8 Estimated GFR (MDRD) 96 Glucose 175 H Calcium 9.0 Total Bilirubin 0.8 AST 18 ALT 19 Alkaline Phosphatase 76 Total Protein 6.7 Albumin 3.9 Globulin 2.8 Albumin/Globulin Ratio 1.4 PD MEDICAL DECISION MAKING - ED course ED course: CT without acute positive findings. The incidental findings which were all pre- existing were discussed with him and he was given a copy of his read. No sign of liver injury pneumothorax etc. from the prior biopsy. He declined pain medication and his symptoms are improving. His pleural effusion seems to be improving with the cessation of Sprycel per so probably does not need further thoracentesis right now as he is minimally symptomatic from that perspective. Departure - Departure Disposition: 01 Home, Self Care Clinical Impression: Right flank pain, Pleural effusion Condition: Good Record reviewed to determine appropriate education?: Yes Comments: As discussed, it looks like the pleural effusion is improving now that you are off the Sprycel. Follow-up with your oncologist and take the copy of the CAT scan with you. Return for new or worsening symptoms. There is no sign of severe injury from the biopsy. Discharge Date/Time: 06/22/21 11:15
[2021-06-22] MEDS ORDERED: LIDOCAINE 1%-EPI 1:100000 20 ML MDV SUBQ STA (08:40)
[2021-06-22 08:54] LABS: BASOPHILS % (AUTO) 0.7 %; EOSINOPHILS # (AUTO) 0.2 10^3/uL (0.0-0.7); EOSINOPHILS % (AUTO) 3.7 %; HCT - HEMATOCRIT 38.6 % (42.0-52.0); HGB - HEMOGLOBIN 12.9 g/dL (14.0-18.0); LYMPHOCYTES # (AUTO) 1.1 10^3/uL (1.5-3.5); LYMPHOCYTES % (AUTO) 18.7 %; MEAN CORPUSCULAR HEMOGLOBIN 29.4 pg (27.0-31.0); MEAN CORPUSCULAR HGB CONC 33.4 g/dL (32.0-36.0); MEAN CORPUSCULAR VOLUME 87.9 fL (80.0-94.0); MONOCYTES # (AUTO) 0.5 10^3/uL (0.0-1.0); MONOCYTES % (AUTO) 8.7 %; NEUTROPHILS # (AUTO) 4.1 10^3/uL (1.5-6.6); NEUTROPHILS % (AUTO) 67.9 %; PLT - PLATELET COUNT 266 10^3/uL (130-450); RED BLOOD COUNT 4.39 10^6/uL (4.70-6.10); RED CELL DISTRIBUTION WIDTH 13.2 % (12.0-15.0)
[2021-06-22 09:06] LABS: ALBUMIN 3.9 g/dL (3.2-5.5); ALBUMIN/GLOBULIN RATIO 1.4 (1.0-2.2); BILIRUBIN,TOTAL 0.8 mg/dL (0.2-1.0); CREATININE 0.8 mg/dL (0.6-1.2); TOTAL PROTEIN 6.7 g/dL (6.7-8.2)
--- NOTE | 2021-06-22 09:10 | XRAY Report ---
PROCEDURE: Chest 1 View X-Ray INDICATIONS: R pleural effusion TECHNIQUE: One view of the chest was acquired. COMPARISON: June 13, 2021 FINDINGS: SUPPORT DEVICES: None. LUNGS/PLEURA: Persistent blunting of the right costophrenic sulcus, compatible pleural fluid. The rig ht lung is well aerated. No pneumothorax. MEDIASTINUM: The cardiomediastinal silhouette is within normal limits. BONES/SOFT TISSUES: No acute abnormality. IMPRESSION: 1.Redemonstrated small right pleural effusion. Reviewed by: Stevo Bundy MD on 06/22/2021 9:09 AM [facility] Approved by: Stevo Bundy MD on 06/22/2021 9:09 AM [facility] Station ID: [id number]
[2021-06-22] MEDS ORDERED: IOVERSOL 320 100 ML VIAL IVP ONE ×2 (09:12→11:03)
--- NOTE | 2021-06-22 10:32 | CT Report ---
PROCEDURE: Abdomen/Pelvis W INDICATIONS: IV only, RUQ pain p liver bx TECHNIQUE: After the administration of intravenous contrast, 5 mm thick sections acquired from the diaphragms to the symphysis. 5 mm thick coronal and sagittal reformats were acquired. For radiation dose reducti on, the following was used: automated exposure control, adjustment of mA and/or kV according to norman ent size. COMPARISON: CT abdomen with and without contrast, . CT abdomen and pelvis with contrast, 04/30. CT pulmonary angiogram with and without contrast, 05/04/2021. FINDINGS: Image quality: Excellent. ABDOMEN: Lung bases: There is a moderate-sized right pleural effusion, unchanged from 06/02/2021. Small peric ardial effusion. There are several small 2-3 mm nodules at lung bases bilaterally. Heart size is normal. Small pericardial effusion. Solid organs: There is a large mass in segment 6/7 measuring 10.9 x 7.3 x 8.5 cm, demonstrating nicolasa pheral nodular enhancement, compatible with a large hepatic hemangioma. A smaller 4.6 x 3.8 x 4.8 cm meningioma is also seen in caudate of liver. Liver is normal in size. Mild hepatic steatosis. Spleen is normal in size and enhancement. Gallbladder contains gallstones. No CT findings to suggest acute cholecystitis. Biliary system is non dilated. Pancreas enhances normally. No adrenal nodule s. Kidneys demonstrate normal size and enhancement, without hydronephrosis. There is a 1.8 cm complex c ystic mass in the superior pole of the left kidney. In addition, there is a 1.3 cm mildly complex cys t in the inferior pole of the left kidney. Peritoneum and bowel: Bowel loops demonstrate normal wall thickness and caliber. Diverticulosis wit hout diverticulitis. No free fluid or air. Nodes and vessels: No retroperitoneal or mesenteric adenopathy by size criteria. Aorta and inferior vena cava are normal in size. Miscellaneous: No ventral hernias. PELVIS: Genitourinary: Bladder wall thickness is normal. Prostate is enlarged. Miscellaneous: No inguinal hernias or adenopathy. Bones: Transitional anatomy with 4 [id number]-gxb-stogxrk lumbar-type vertebrae. Assuming sacralization of L 5. Sclerotic bone lesions are noted in T11, T12, L4, left sacral ala, and bony pelvis bilaterally. Mi ld chronic compression deformity of T9, T10 and T11. There is overall heterogeneous appearance of os seous structures IMPRESSION: 1. No acute abnormalities in abdomen pelvis. 2. Hepatic hemangiomas are again noted. The larger lesion is biopsied. Please correlate with tissue d iagnosis. 3. Moderate right pleural effusion, unchanged in size. 4. Small pericardial effusion. 5. Cholelithiasis. No CT findings to suggest acute cholecystitis. 6. A couple complex cystic masses seen in left kidney. Cannot rule out renal cell carcinomas. 7. Sclerotic bone lesions are present, concerning for metastatic disease. 8. Transitional anatomy with sacralization of L5. 9. Small indeterminate lung nodules are present bilaterally. Reviewed by: Sonia Graves MD on 06/22/2021 10:31 AM PST Approved by: Sonia Graves MD on 06/22/2021 10:31 AM PST Station ID: [id number]
[2021-06-22 10:58] VITALS: BP 143/81
== END 2021-06-22 11:15 | disposition home or self-care (01) ==
LOC: ED 07:50
DX: R10.9 Unspecified abdominal pain (principal); J90 Pleural effusion, not elsewhere classified; Z87.891 Personal history of nicotine dependence
CPT/HCPCS: 36415; 71045; 74177; 80053; 85025; 99281; 99283; Q9967

== ENCOUNTER 2021-07-04 09:19 | Outpatient (CLI) | payer MEDICARE, OTHER ==
[2021-07-04 10:27] LABS: BASOPHILS % (AUTO) 0.6 %; EOSINOPHILS # (AUTO) 0.3 10^3/uL (0.0-0.7); EOSINOPHILS % (AUTO) 3.8 %; HGB - HEMOGLOBIN 13.1 g/dL (14.0-18.0); LYMPHOCYTES % (AUTO) 15.5 %; MEAN CORPUSCULAR HGB CONC 33.6 g/dL (32.0-36.0); MEAN CORPUSCULAR VOLUME 86.3 fL (80.0-94.0); MONOCYTES # (AUTO) 0.4 10^3/uL (0.0-1.0); MONOCYTES % (AUTO) 5.7 %; NEUTROPHILS # (AUTO) 4.8 10^3/uL (1.5-6.6); NEUTROPHILS % (AUTO) 74.1 %; PLT - PLATELET COUNT 303 10^3/uL (130-450); RED BLOOD COUNT 4.52 10^6/uL (4.70-6.10); RED CELL DISTRIBUTION WIDTH 13.2 % (12.0-15.0); WHITE BLOOD COUNT 6.5 x10^3/uL (4.8-10.8)
[2021-07-04 10:39] LABS: CREATININE,URINE 238.2 mg/dL; MICROALBUM/CREATININE RATIO,UR 2.9 ug/mg (<30.0); MICROALBUMIN,URINE 0.7 mg/dL (0-300.0)
[2021-07-04 10:45] LABS: ALBUMIN 4.1 g/dL (3.2-5.5); ALBUMIN/GLOBULIN RATIO 1.5 (1.0-2.2); ALKALINE PHOSPHATASE 71 IU/L (42-121); ALT ALANINE AMINOTRANSFERASE 21 IU/L (10-60); AST ASPARTATE AMINOTRANSFERASE 17 IU/L (10-42); BILIRUBIN,TOTAL 0.6 mg/dL (0.2-1.0); BUN - BLOOD UREA NITROGEN 18 mg/dL (6-20); CALCIUM 9.5 mg/dL (8.5-10.3); CARBON DIOXIDE - CO2 28 mmol/L (21-32); CHLORIDE 106 mmol/L (101-111); CHOL/HDL RATIO 4.9 (<5.0); CHOLESTEROL 205 mg/dL; GFR - MDRD 74 (>89); GLUCOSE 183 mg/dL (70-100); HDL CHOLESTEROL 42 mg/dL; LDL CHOLESTEROL,CALCULATED 120 mg/dL; LDL/HDL RATIO 2.9 (<3.6); POTASSIUM 4.4 mmol/L (3.5-5.0); SODIUM 144 mmol/L (135-145); TOTAL PROTEIN 6.8 g/dL (6.7-8.2); TRIGLYCERIDES 215 mg/dL; VLDL CHOLESTEROL 43 mg/dL
--- NOTE | 2021-07-04 11:56 | Ultrasound Report ---
PROCEDURE: Chest INDICATIONS: PLEURAL EFFUSION TECHNIQUE: Real-time scanning was performed, and a suitable site was marked by the derrick barge operator for thoracentesis to be performed by the referring clinician. COMPARISON: None. FINDINGS: There is a moderate size right pleural effusion. Estimated volume of the pleural effusion is between 400-500 mL. IMPRESSION: Moderate-sized right pleural effusion. Reviewed by: Victor M Cardoso MD on 07/04/2021 11:55 AM PST Approved by: Victor M Cardoso MD on 07/04/2021 11:55 AM PST Station ID: [id number]
[2021-07-04 12:21] LABS: ESTIMATED AVERAGE GLUCOSE 146 mg/dL (70-100); HEMOGLOBIN A1c% 6.7 % (4.27-6.07)
== END 2021-07-04 09:20 | disposition home or self-care (01) ==
LOC: DI 09:19
PROVIDERS: ATTEND Family Medicine
DX: J90 Pleural effusion, not elsewhere classified (principal); R91.8 Other nonspecific abnormal finding of lung field; Z13.0 Encounter for screening for diseases of the blood and blood-forming organs and certain disorders involving the immune mechanism; E11.9 Type 2 diabetes mellitus without complications
CPT/HCPCS: 36415; 80053; 80061; 81599; 82043; 82570; 83036; 83721; 85025

== ENCOUNTER 2021-07-04 09:41 | Outpatient (CLI) | payer MEDICARE, OTHER ==
--- NOTE | 2021-07-04 10:12 | XRAY Report ---
PROCEDURE: Chest 2 View X-Ray INDICATIONS: PLEURAL EFFUSION TECHNIQUE: 2 view(s) of the chest. COMPARISON: 06/22/2021. FINDINGS: Surgical changes and devices: None. Lungs and pleura: No pneumothorax. Stable appearance of small right pleural effusion. Associated mi ld compressive atelectasis of the right lung base. Minimal blunting of the left costophrenic angle on the lateral view may represent a trace pleural effusion. Lungs are otherwise clear. Mediastinum: Mediastinal contours are stable. Heart size is normal. Bones and chest wall: No suspicious bony abnormalities. Soft tissues appear unremarkable. IMPRESSION: Stable appearance of small right pleural effusion. Possible trace left pleural effusion. Otherwise, no acute cardiopulmonary abnormalities. Reviewed by: Enoc Agosto MD on 07/04/2021 10:11 AM [facility] Approved by: Enoc Agosto MD on 07/04/2021 10:11 AM [facility] Station ID: [id number]
== END 2021-07-04 09:42 | disposition home or self-care (01) ==
LOC: DI 09:41
PROVIDERS: ATTEND Internal Medicine Hematology
DX: J90 Pleural effusion, not elsewhere classified (principal); R91.8 Other nonspecific abnormal finding of lung field

== ENCOUNTER 2021-07-21 10:13 | Outpatient (CLI) | payer OTHER ==
--- NOTE | 2021-07-21 11:14 | XRAY Report ---
PROCEDURE: Chest 2 View X-Ray INDICATIONS: FLUID RETENTION TECHNIQUE: 2 view(s) of the chest. COMPARISON: 07/04/2021 and 06/22/2021 chest x-ray examinations. FINDINGS: Surgical changes and devices: None. Lungs and pleura: No pleural effusions or pneumothorax. Stable right costophrenic angle blunting. L ungs are clear. Mediastinum: Mediastinal contours are normal. Heart size is normal. Bones and chest wall: No suspicious bony abnormalities. Soft tissues appear unremarkable. IMPRESSION: No acute process. Reviewed by: Marcela Galvan MD on 07/21/2021 11:13 AM PDT Approved by: Marcela Galvan MD on 07/21/2021 11:13 AM PDT Station ID: [id number]
--- NOTE | 2021-07-21 14:46 | Ultrasound Report ---
PROCEDURE: Chest INDICATIONS: SHORTNESS OF BREATH TECHNIQUE: Real-time scanning was performed, and a suitable site was marked by the corn breeder for thoracentesis to be performed by the referring clinician. COMPARISON: Ultrasound 07/04/2021. Chest radiographs 07/21/2021 and 07/04/2021. FINDINGS: Right-sided pleural effusion is seen measuring roughly 13.6 x 2.3 x 3.7 cm (approximately 60 mL). Rig ht-sided pleural effusion previously estimated at 400-500 mL on ultrasound from 07/04/2021. No left-eliecer ed pleural effusion. IMPRESSION: Small right pleural effusion has decreased when compared to the ultrasound from 07/04/2021. Reviewed by: Jason Madrigal MD on 07/21/2021 1:45 PM [facility] Approved by: Jason Madrigal MD on 07/21/2021 1:45 PM [facility] Station ID: [id number]
== END 2021-07-21 10:14 | disposition home or self-care (01) ==
LOC: DI 10:13
PROVIDERS: ATTEND Family Medicine
DX: J90 Pleural effusion, not elsewhere classified (principal); R06.02 Shortness of breath; C92.10 Chronic myeloid leukemia, BCR/ABL-positive, not having achieved remission
CPT/HCPCS: 81599

== ENCOUNTER 2021-08-30 09:05 | Outpatient (CLI) | payer OTHER ==
--- NOTE | 2021-08-30 11:47 | Ultrasound Report ---
PROCEDURE: Chest INDICATIONS: PLEURAL EFFUSION TECHNIQUE: Real-time scanning was performed, and a suitable site was marked by the fittings finisher for thoracentesis to be performed by the referring clinician. COMPARISON: None. FINDINGS: No pleural effusions are seen bilaterally. IMPRESSION: No pleural effusions. Reviewed by: Marcela Galvan MD on 08/30/2021 11:46 AM PDT Approved by: Marcela Galvan MD on 08/30/2021 11:46 AM PDT Station ID: [id number]
== END 2021-08-30 09:06 | disposition home or self-care (01) ==
LOC: DI 09:05
PROVIDERS: ATTEND Family Medicine
DX: J90 Pleural effusion, not elsewhere classified (principal); R91.8 Other nonspecific abnormal finding of lung field

== ENCOUNTER 2021-08-30 09:07 | Outpatient (CLI) | payer MEDICARE ==
[2021-08-30] MEDS ORDERED: IOPAMIDOL-300 100 ML VIAL ONE (09:22)
[2021-08-30] MEDS ORDERED: IOVERSOL 320 50 ML VIAL ONE (09:22)
[2021-08-30] MEDS ORDERED: IOVERSOL 320 50 ML VIAL PO ONE (12:08)
[2021-08-30] MEDS ORDERED: IOPAMIDOL-300 100 ML VIAL IVP ONE (12:08)
--- NOTE | 2021-08-30 14:07 | CT Report ---
PROCEDURE: Abdomen/Pelvis W INDICATIONS: CML CONTRAST: IV CONTRAST: Isovue 300 ml: 100 PO CONTRAST: Optiray 320 ml50 TECHNIQUE: After the administration of IV and oral contrast, 5 mm thick sections acquired from the diaphragms to the symphysis. 5 mm thick coronal and sagittal reformats were acquired. For radiation dose reducti on, the following was used: automated exposure control, adjustment of mA and/or kV according to norman ent size. COMPARISON: 06/02/2021, 05/14/2021, 05/19/2021. Correlation is also made with the accompanying chest CT, 08/30/2021. FINDINGS: Image quality: Excellent. ABDOMEN: Lung bases: Lung bases are clear. Heart size is normal. A small hiatal hernia is incidentally note d. Solid organs: Several liver hemangiomas are seen, with peripheral puddling. No suspicious liver lesi ons are seen. The liver overall demonstrates normal size. Underlying generalized fatty infiltration o f the liver can be seen. Gallbladder demonstrates numerous gallstones within its lumen Biliary system is non dilated. The spl een demonstrates normal size and demonstrates no suspicious lesions. Pancreas enhances normally. No adrenal nodules. Kidneys demonstrate normal size and enhancement, without hydronephrosis. Along the medial aspect of the right kidney, there is an irregularly enhancing exophytic mass, as on series 3 image 31 that ander ures 2 cm. On the left kidney, there is a 1.4 cm lesion that measures 52 Hounsfield units. Peritoneum and bowel: Bowel loops demonstrate normal wall thickness and caliber. No free fluid or a ir. Nodes and vessels: No retroperitoneal or mesenteric adenopathy by size criteria. Aorta and inferior vena cava are normal in size. Miscellaneous: No ventral hernias. PELVIS: Genitourinary: Bladder wall thickness is normal. The prostate is enlarged, measuring 6 cm transverse ly. Miscellaneous: No inguinal adenopathy. Bilateral fat-containing inguinal hernias are seen, left lar hipolito than right. Bones: Sclerotic bony lesions are again seen. No vertebral body compression fractures. This patient has transitional anatomy. For the purposes of this examination, the level with the last pair of ribs considered to be T12. By this imaging scheme, the L5 level is transitional and is highly sacralized. IMPRESSION: No enlarged or suspicious lymph nodes are seen. There is a 2 cm complex mass along the medial aspect of the left kidney, with an additional potential enhancing nodule at the inferior pole of the left kidney. There is at least moderate suspicion for r enal cell carcinomas. Numerous sclerotic bony lesions are again seen, which remain suspicious for bony metastatic disease. Incidental note is made of: Liver hemangiomas Background fatty liver infiltration Gallstones Bilateral fat-containing inguinal hernias Enlarged prostate Transitional lumbar anatomy, with a highly sacralized L5 level. Reviewed by: Vance Story MD on 08/30/2021 1:06 PM [facility] Approved by: Vance Story MD on 08/30/2021 1:06 PM [facility] Station ID: [id number]
--- NOTE | 2021-08-30 14:13 | CT Report ---
PROCEDURE: CHEST W INDICATIONS: CML CONTRAST: IV CONTRAST: Isovue 300 ml: 100 PO CONTRAST: Optiray 320 ml50 TECHNIQUE: After the administration of intravenous contrast, 1 mm axial images were acquired from the pulmonary apices through the posterior costophrenic angles. Axial 5 mm soft tissue kernel reconstructions were performed as well as 8 mm axial MIP and coronal and sagittal 5 mm reformations. For radiation dose reduction, the following was used: automated exposure control, adjustment of mA and/or kV according to patient size. COMPARISON: Prior chest CT, 05/04/2021. Correlation is made with the accompanying CT of the abdomen an d pelvis, 08/30/2021. FINDINGS: Image quality: Excellent. Lungs and pleura: No acute air space opacities. No pleural effusions or pneumothorax. The previousl y seen left lower lobe pulmonary nodule is again seen, as on series 3 image 106 measuring up to 6 mm. The previously seen right upper lobe pulmonary nodule is no longer definitely seen. The previously seen right-sided pleural effusion has resolved. Central and peripheral airways are patent and normal in caliber. Mediastinum: Heart size is normal. No pericardial effusion. No mediastinal or hilar adenopathy by size criteria. Thoracic aorta and central pulmonary arteries are normal in size. Esophagus is iesha l in caliber. No hiatal hernia. Bones and chest wall: Numerous stable sclerotic bony lesions are seen. No vertebral body compression fractures. No axillary or supraclavicular adenopathy by size criteria. The thyroid is normal in siz e and there are no incidental findings.. Abdomen: There are hemangiomas are seen. Background fatty liver infiltration can be seen. Gallstones are again seen. There is a 2 cm partially enhancing mass along the medial aspect of the left kidney. The visualized portions of the upper abdominal structures are otherwise within normal limits. IMPRESSION: No enlarged lymph nodes are seen. Interval resolution of the previously seen right-sided pleural effusion. There is a stable left upper lobe pulmonary nodule. The previously identified right upper lobe pulmon ene nodule is not optimally seen on this study. 2 cm partially enhancing mass along the inferior aspect of the right kidney, with suspicion again rosario sed for renal cell carcinoma. Numerous stable sclerotic bony lesions are seen, which remain suspicious for bony metastatic disease. Incidental note is made of: Liver hemangiomas Gallstones Reviewed by: Vance Story MD on 08/30/2021 1:12 PM [facility] Approved by: Vance Story MD on 08/30/2021 1:12 PM [facility] Station ID: [id number]
== END 2021-08-30 09:08 | disposition home or self-care (01) ==
LOC: DI 09:07
PROVIDERS: ATTEND Internal Medicine Hematology
DX: C92.10 Chronic myeloid leukemia, BCR/ABL-positive, not having achieved remission (principal); J90 Pleural effusion, not elsewhere classified; R91.1 Solitary pulmonary nodule; N28.89 Other specified disorders of kidney and ureter; R91.8 Other nonspecific abnormal finding of lung field; R10.32 Left lower quadrant pain; R93.422 Abnormal radiologic findings on diagnostic imaging of left kidney; R93.7 Abnormal findings on diagnostic imaging of other parts of musculoskeletal system
CPT/HCPCS: 36415; 71260; 74177; 76604; 80053; 81001; 81206; 81207; 85025; 87086; Q9967

== ENCOUNTER 2021-08-30 09:50 | Outpatient (CLI) | payer OTHER ==
[2021-08-30 09:58] LABS: BASOPHILS # (AUTO) 0.1 10^3/uL (0.0-0.1); BASOPHILS % (AUTO) 0.8 %; EOSINOPHILS # (AUTO) 0.1 10^3/uL (0.0-0.7); EOSINOPHILS % (AUTO) 1.4 %; HCT - HEMATOCRIT 39.9 % (42.0-52.0); HGB - HEMOGLOBIN 13.5 g/dL (14.0-18.0); LYMPHOCYTES # (AUTO) 1.1 10^3/uL (1.5-3.5); LYMPHOCYTES % (AUTO) 13.8 %; MEAN CORPUSCULAR HEMOGLOBIN 28.8 pg (27.0-31.0); MEAN CORPUSCULAR HGB CONC 33.8 g/dL (32.0-36.0); MEAN CORPUSCULAR VOLUME 85.1 fL (80.0-94.0); MEAN PLATELET VOLUME 9.1 fL (7.4-11.4); MONOCYTES # (AUTO) 0.6 10^3/uL (0.0-1.0); MONOCYTES % (AUTO) 7.7 %; NEUTROPHILS # (AUTO) 6.1 10^3/uL (1.5-6.6); NEUTROPHILS % (AUTO) 74.1 %; PLT - PLATELET COUNT 270 10^3/uL (130-450); RED BLOOD COUNT 4.69 10^6/uL (4.70-6.10); RED CELL DISTRIBUTION WIDTH 13.6 % (12.0-15.0); WHITE BLOOD COUNT 8.3 x10^3/uL (4.8-10.8)
[2021-08-30 10:09] LABS: ALBUMIN 4.3 g/dL (3.2-5.5); ALBUMIN/GLOBULIN RATIO 1.5 (1.0-2.2); BILIRUBIN,TOTAL 0.6 mg/dL (0.2-1.0); CALCIUM 9.3 mg/dL (8.5-10.3); CREATININE 0.8 mg/dL (0.6-1.2); POTASSIUM 3.7 mmol/L (3.5-5.0); TOTAL PROTEIN 7.1 g/dL (6.7-8.2)
[2021-08-30 10:39] LABS: BILIRUBIN,URINE NEGATIVE (NEGATIVE); GLUCOSE, URINE (UA) 250 mg/dL (NEGATIVE); KETONES,URINE (UA) TRACE mg/dL (NEGATIVE); LEUKOCYTE ESTERASE, URINE NEGATIVE (NEGATIVE); NITRITE,URINE NEGATIVE (NEGATIVE); OCCULT BLOOD,URINE NEGATIVE (NEGATIVE); PH,URINE 5.5 PH (5.0-7.5); PROTEIN,URINE NEGATIVE (NEGATIVE); UROBILINOGEN,URINE 0.2 (NORMAL) E.U./dL (NORMAL)
[2021-08-30 11:11] LABS: CLARITY,URINE CLEAR (CLEAR)
[2021-08-30 11:26] LABS: BACTERIA,URINE Rare /HPF (None Seen); MUCUS,URINE Marked Strands; RBC,URINE 0-5 /HPF (0-5); SQUAMOUS EPITHELIAL CELL,UR RARE Squamous (<= Few); WBC,URINE 0-3 /HPF (0-3)
== END 2021-08-30 23:59 | disposition home or self-care (01) ==
LOC: LAB 09:50
PROVIDERS: ATTEND Family Medicine
DX: R10.32 Left lower quadrant pain (principal); C92.10 Chronic myeloid leukemia, BCR/ABL-positive, not having achieved remission
CPT/HCPCS: 36415; 80053; 81001; 81206; 81207; 85025; 87086

== ENCOUNTER 2021-10-18 09:37 | Outpatient (CLI) | payer OTHER ==
--- NOTE | 2021-10-18 13:13 | Ultrasound Report ---
PROCEDURE: Chest INDICATIONS: CML, PE TECHNIQUE: Real-time scanning was performed, and a suitable site was marked by the intercell connector placer for thoracentesis to be performed by the referring clinician. COMPARISON: None. FINDINGS: No pleural effusion on the right or left by ultrasound interrogation. IMPRESSION: No sonographic evidence for pleural effusion. Reviewed by: Lucrecia John MD on 10/18/2021 1:11 PM PDT Approved by: Lucrecia John MD on 10/18/2021 1:11 PM PDT Station ID: [id number]
== END 2021-10-18 09:38 | disposition home or self-care (01) ==
LOC: DI 09:37
PROVIDERS: ATTEND Internal Medicine Hematology
DX: C92.10 Chronic myeloid leukemia, BCR/ABL-positive, not having achieved remission (principal); D18.03 Hemangioma of intra-abdominal structures

== ENCOUNTER 2021-10-18 09:42 | Outpatient (CLI) | payer OTHER ==
[2021-10-18 10:22] LABS: BASOPHILS % (AUTO) 0.6 %; EOSINOPHILS # (AUTO) 0.2 10^3/uL (0.0-0.7); EOSINOPHILS % (AUTO) 2.5 %; HCT - HEMATOCRIT 39.1 % (42.0-52.0); LYMPHOCYTES # (AUTO) 1.4 10^3/uL (1.5-3.5); LYMPHOCYTES % (AUTO) 21.9 %; MEAN CORPUSCULAR HEMOGLOBIN 29.3 pg (27.0-31.0); MEAN CORPUSCULAR HGB CONC 33.2 g/dL (32.0-36.0); MEAN CORPUSCULAR VOLUME 88.1 fL (80.0-94.0); MEAN PLATELET VOLUME 9.1 fL (7.4-11.4); MONOCYTES # (AUTO) 0.5 10^3/uL (0.0-1.0); MONOCYTES % (AUTO) 8.4 %; NEUTROPHILS # (AUTO) 4.2 10^3/uL (1.5-6.6); NEUTROPHILS % (AUTO) 65.7 %; PLT - PLATELET COUNT 270 10^3/uL (130-450); RED BLOOD COUNT 4.44 10^6/uL (4.70-6.10); WHITE BLOOD COUNT 6.4 x10^3/uL (4.8-10.8)
--- NOTE | 2021-10-18 12:36 | XRAY Report ---
PROCEDURE: Hand 3 View LT INDICATIONS: LEFT HAND PAIN TECHNIQUE: 3 views of the hand(s) acquired. COMPARISON: None FINDINGS: Bones: No fractures or dislocations. No suspicious bony lesions. Soft tissues: No suspicious soft tissue calcifications. IMPRESSION: Normal left hand without visible osteoarthritic changes. Reviewed by: Natalie Rogers MD on 10/18/2021 12:35 PM PDT Approved by: Natalie Rogers MD on 10/18/2021 12:35 PM PDT Station ID: [id number]
== END 2021-10-18 09:43 | disposition home or self-care (01) ==
LOC: DI 09:42
PROVIDERS: ATTEND Family Medicine
DX: M79.642 Pain in left hand (principal); C92.10 Chronic myeloid leukemia, BCR/ABL-positive, not having achieved remission; D18.03 Hemangioma of intra-abdominal structures
CPT/HCPCS: 36415; 81207; 85025

== ENCOUNTER 2022-01-24 09:51 | Outpatient (CLI) | payer MEDICARE, OTHER ==
--- NOTE | 2022-01-25 09:50 | Ultrasound Report ---
PROCEDURE: Chest INDICATIONS: PLEURAL EFFUSION TECHNIQUE: Real-time scanning was performed, and a suitable site was marked by the supervisor finish end for thoracentesis to be performed by the referring clinician. COMPARISON: 12/13/2021 FINDINGS: No pleural effusion present on the right or the left. IMPRESSION: No visible pleural effusion in the right or left chest. Reviewed by: Victor M Cardoso MD on 01/25/2022 9:48 AM PDT Approved by: Victor M Cardoso MD on 01/25/2022 9:48 AM PDT Station ID: [id number]
== END 2022-01-24 09:52 | disposition home or self-care (01) ==
LOC: DI 09:51
PROVIDERS: ATTEND Internal Medicine Hematology
DX: J90 Pleural effusion, not elsewhere classified (principal); C92.10 Chronic myeloid leukemia, BCR/ABL-positive, not having achieved remission; D18.03 Hemangioma of intra-abdominal structures
CPT/HCPCS: 36415; 81206; 81207; 85025

== ENCOUNTER 2022-01-24 10:00 | Outpatient (CLI) | payer OTHER ==
[2022-01-24 10:23] LABS: BASOPHILS % (AUTO) 0.6 %; EOSINOPHILS # (AUTO) 0.2 10^3/uL (0.0-0.7); EOSINOPHILS % (AUTO) 3.1 %; HGB - HEMOGLOBIN 13.3 g/dL (14.0-18.0); LYMPHOCYTES # (AUTO) 1.4 10^3/uL (1.5-3.5); MEAN CORPUSCULAR HEMOGLOBIN 29.1 pg (27.0-31.0); MEAN CORPUSCULAR HGB CONC 33.3 g/dL (32.0-36.0); MEAN CORPUSCULAR VOLUME 87.5 fL (80.0-94.0); MEAN PLATELET VOLUME 9.2 fL (7.4-11.4); MONOCYTES # (AUTO) 0.6 10^3/uL (0.0-1.0); MONOCYTES % (AUTO) 9.2 %; NEUTROPHILS # (AUTO) 4.5 10^3/uL (1.5-6.6); NEUTROPHILS % (AUTO) 65.5 %; PLT - PLATELET COUNT 308 10^3/uL (130-450); RED BLOOD COUNT 4.57 10^6/uL (4.70-6.10); RED CELL DISTRIBUTION WIDTH 13.5 % (12.0-15.0); WHITE BLOOD COUNT 6.8 x10^3/uL (4.8-10.8)
== END 2022-01-24 10:01 | disposition home or self-care (01) ==
LOC: LAB 10:00
PROVIDERS: ATTEND Internal Medicine Hematology
DX: C92.10 Chronic myeloid leukemia, BCR/ABL-positive, not having achieved remission (principal); D18.03 Hemangioma of intra-abdominal structures
CPT/HCPCS: 36415; 81206; 81207; 85025

== ENCOUNTER 2022-03-27 14:49 | Outpatient (CLI) | payer MEDICARE ==
[2022-03-27 15:25] LABS: ALBUMIN 3.9 g/dL (3.2-5.5); ALBUMIN/GLOBULIN RATIO 1.4 (1.0-2.2); BILIRUBIN,TOTAL 0.6 mg/dL (0.2-1.0); CALCIUM 9.5 mg/dL (8.5-10.3); CREATININE 0.8 mg/dL (0.6-1.2); POTASSIUM 4.1 mmol/L (3.5-5.0); TOTAL PROTEIN 6.7 g/dL (6.7-8.2)
[2022-03-27 20:54] LABS: ESTIMATED AVERAGE GLUCOSE 275 mg/dL (70-100); HEMOGLOBIN A1c% 11.2 % (4.27-6.07)
== END 2022-03-27 14:50 | disposition home or self-care (01) ==
LOC: LAB 14:49
PROVIDERS: ATTEND Family Medicine
DX: E11.9 Type 2 diabetes mellitus without complications (principal)
CPT/HCPCS: 36415; 80053; 83036

== ENCOUNTER 2022-04-26 09:45 | Outpatient (CLI) | payer OTHER ==
[2022-04-26 10:20] LABS: BASOPHILS # (AUTO) 0.1 10^3/uL (0.0-0.1); BASOPHILS % (AUTO) 0.8 %; EOSINOPHILS # (AUTO) 0.2 10^3/uL (0.0-0.7); EOSINOPHILS % (AUTO) 3.6 %; HCT - HEMATOCRIT 41.1 % (42.0-52.0); HGB - HEMOGLOBIN 13.4 g/dL (14.0-18.0); LYMPHOCYTES # (AUTO) 1.2 10^3/uL (1.5-3.5); LYMPHOCYTES % (AUTO) 18.6 %; MEAN CORPUSCULAR HEMOGLOBIN 28.9 pg (27.0-31.0); MEAN CORPUSCULAR HGB CONC 32.6 g/dL (32.0-36.0); MEAN CORPUSCULAR VOLUME 88.8 fL (80.0-94.0); MEAN PLATELET VOLUME 9.2 fL (7.4-11.4); MONOCYTES # (AUTO) 0.4 10^3/uL (0.0-1.0); MONOCYTES % (AUTO) 6.3 %; NEUTROPHILS # (AUTO) 4.5 10^3/uL (1.5-6.6); NEUTROPHILS % (AUTO) 70.4 %; PLT - PLATELET COUNT 325 10^3/uL (130-450); RED BLOOD COUNT 4.63 10^6/uL (4.70-6.10); RED CELL DISTRIBUTION WIDTH 13.4 % (12.0-15.0); WHITE BLOOD COUNT 6.4 x10^3/uL (4.8-10.8)
[2022-04-26 10:32] LABS: ALBUMIN 4.2 g/dL (3.2-5.5); ALBUMIN/GLOBULIN RATIO 1.4 (1.0-2.2); BILIRUBIN,TOTAL 0.4 mg/dL (0.2-1.0); CREATININE 0.8 mg/dL (0.6-1.2); POTASSIUM 3.5 mmol/L (3.5-5.0); TOTAL PROTEIN 7.2 g/dL (6.7-8.2)
--- NOTE | 2022-04-26 12:43 | Ultrasound Report ---
PROCEDURE: Chest INDICATIONS: PLEURAL EFFUSION TECHNIQUE: Real-time scanning was performed of the left and right pleural space. COMPARISON: Most recent prior study 03/13/2022 FINDINGS: No significant pleural effusion in either hemithorax. IMPRESSION: No pleural effusion. Reviewed by: Natalie Rogers MD on 04/26/2022 12:42 PM PST Approved by: Natalie Rogers MD on 04/26/2022 12:42 PM [facility] Station ID: [id number]
[2022-04-26 13:19] LABS: ESTIMATED AVERAGE GLUCOSE 266 mg/dL (70-100); HEMOGLOBIN A1c% 10.9 % (4.27-6.07)
== END 2022-04-26 09:46 | disposition home or self-care (01) ==
LOC: DI 09:45
PROVIDERS: ATTEND Internal Medicine Hematology
DX: C92.10 Chronic myeloid leukemia, BCR/ABL-positive, not having achieved remission (principal); D18.03 Hemangioma of intra-abdominal structures; E11.9 Type 2 diabetes mellitus without complications
CPT/HCPCS: 36415; 80053; 81207; 83036; 85025

== ENCOUNTER 2022-05-22 10:33 | Outpatient (CLI) | payer OTHER | END 2022-05-22 10:34 | disposition home or self-care (01) | LOC: LAB 10:33 | PROVIDERS: ATTEND Family Medicine | DX: E11.9 Type 2 diabetes mellitus without complications (principal) | CPT/HCPCS: 36415; 84681 ==

== ENCOUNTER 2022-07-25 09:36 | Outpatient (CLI) | payer OTHER ==
[2022-07-25] MEDS ORDERED: iohexoL-300 100 ML VIAL ONE ×2 (10:03→10:28)
[2022-07-25] MEDS ORDERED: iohexoL-300 100 ML VIAL IVP ONE (10:32)
--- NOTE | 2022-07-25 13:20 | CT Report ---
PROCEDURE: ABDOMEN/PELVIS W/WO INDICATIONS: RENAL MASS CONTRAST: 140ml Omnipaque 300 TECHNIQUE: Noncontrast 5 mm thick sections acquired from the diaphragms to the symphysis. 5 mm coronal and sagi ttal reformats were then performed. After the administration of intravenous contrast, 5 mm thick sec tions acquired from the diaphragms to the symphysis. 5 mm thick coronal and sagittal reformats were acquired. For radiation dose reduction, the following was used: automated exposure control, adjustm ent of mA and/or kV according to patient size. COMPARISON: CT 08/30/2021, 06/22/2021. FINDINGS: Image quality: Excellent. Lung bases and heart: Faint groundglass and solid nodules present, largest nodule measures 6 to 7 mm in the right lower lobe (10). These are stable since 08/30/2021, favoring a benign etiology. Liver: Similar hemangiomas, largest measuring 11.5 cm, previously 11 cm using similar measuring techn iques. Smooth liver contour. Gallbladder and biliary tree: Cholelithasis without wall thickening. Bile ducts measure within normal limits. Spleen: Unremarkable. Pancreas: Unremarkable. Adrenals: No nodules. Kidneys: In the medial margin of the left kidney, there is a cortical mass measuring 1.7 cm with darci rial enhancement and washout 1.5 cm in 2021. No invasion beyond the pararenal fascia. No retroperiton eal adenopathy. Renal vein is widely patent. Bowel and peritoneum: No bowel distension. No pathologic free fluid. Lymph nodes: No central or retroperitoneal adenopathy. Vessels: No aortic aneurysm. PELVIS Reproductive organs: Unremarkable. Bladder and ureters: Unremarkable. Lymph nodes: No pelvic adenopathy. Bones: No aggressive osseous abnormality. Bone island within the L4 vertebral body, left sacral alar and right posterior iliac bone by Hounsfield units criteria. Other: Fat within the inguinal canals. IMPRESSION: 1.Slight interval growth of the enhancing mass along the medial margin of the left kidney measuring 1 .7 cm, previously a 1.5 cm and 2021. Findings are most consistent with renal cell carcinoma, less lik maddison lipid poor angiomyolipoma. Urology referral is recommended. No evidence of venous invasion or ret roperitoneal adenopathy. 2.Similar liver hemangiomas. 3.Cholelithiasis without evidence of acute cholecystitis. Reviewed by: Theo Corey on 07/25/2022 1:18 PM PDT Approved by: Theo Corey on 07/25/2022 1:18 PM PDT Station ID: [id number]
== END 2022-07-25 09:37 | disposition home or self-care (01) ==
LOC: DI 09:36
PROVIDERS: ATTEND Family Medicine
DX: N28.89 Other specified disorders of kidney and ureter (principal); D18.09 Hemangioma of other sites; K80.20 Calculus of gallbladder without cholecystitis without obstruction; E11.9 Type 2 diabetes mellitus without complications; N28.1 Cyst of kidney, acquired
CPT/HCPCS: 36415; 74178; 80048; 83036; Q9967

== ENCOUNTER 2022-07-25 09:37 | Outpatient (CLI) | payer OTHER ==
[2022-07-25 10:07] LABS: CALCIUM 9.1 mg/dL (8.5-10.3); CREATININE 0.8 mg/dL (0.6-1.2); POTASSIUM 3.8 mmol/L (3.5-5.0)
[2022-07-25 13:50] LABS: ESTIMATED AVERAGE GLUCOSE 220 mg/dL (70-100); HEMOGLOBIN A1c% 9.3 % (4.27-6.07)
== END 2022-07-25 09:38 | disposition home or self-care (01) ==
LOC: LAB 09:37
PROVIDERS: ATTEND Family Medicine
DX: E11.9 Type 2 diabetes mellitus without complications (principal); N28.1 Cyst of kidney, acquired
CPT/HCPCS: 36415; 80048; 83036

== ENCOUNTER 2022-07-31 04:22 | Outpatient (CLI) | payer MEDICARE | END 2022-07-31 23:59 | disposition critical access hospital (66) | LOC: EMS 04:22 | DX: R42 Dizziness and giddiness (principal); F41.9 Anxiety disorder, unspecified; R26.89 Other abnormalities of gait and mobility | CPT/HCPCS: A0425; A0429 ==

== ENCOUNTER 2022-07-31 04:50 | Emergency (ER) | payer MEDICARE, OTHER ==
[2022-07-31] MEDS ORDERED: SODIUM CHLORIDE 0.9% 500 ML IV STA (05:27)
[2022-07-31 05:36] LABS: BASOPHILS # (AUTO) 0.1 10^3/uL (0.0-0.1); BASOPHILS % (AUTO) 0.7 %; EOSINOPHILS # (AUTO) 0.2 10^3/uL (0.0-0.7); EOSINOPHILS % (AUTO) 3.3 %; HCT - HEMATOCRIT 41.5 % (42.0-52.0); HGB - HEMOGLOBIN 13.7 g/dL (14.0-18.0); LYMPHOCYTES # (AUTO) 0.9 10^3/uL (1.5-3.5); LYMPHOCYTES % (AUTO) 13.4 %; MEAN CORPUSCULAR HEMOGLOBIN 28.9 pg (27.0-31.0); MEAN CORPUSCULAR VOLUME 87.6 fL (80.0-94.0); MEAN PLATELET VOLUME 9.4 fL (7.4-11.4); MONOCYTES # (AUTO) 0.4 10^3/uL (0.0-1.0); MONOCYTES % (AUTO) 5.7 %; NEUTROPHILS # (AUTO) 5.1 10^3/uL (1.5-6.6); NEUTROPHILS % (AUTO) 76.5 %; PLT - PLATELET COUNT 333 10^3/uL (130-450); RED BLOOD COUNT 4.74 10^6/uL (4.70-6.10); RED CELL DISTRIBUTION WIDTH 13.2 % (12.0-15.0); WHITE BLOOD COUNT 6.7 x10^3/uL (4.8-10.8)
[2022-07-31] MEDS ORDERED: iohexoL-300 100 ML VIAL ONE (05:37)
--- NOTE | 2022-07-31 05:44 | ED Physician Documentation ---
History of Present Illness - Stated complaint Stated Complaint: LIGHTHEADED, DIZZY - Chief complaint Chief Complaint: General - History obtained from History obtained from: Patient - Additonal information Additional information: Patient is a 71-year-old male with a history of CML presenting for evaluation of feeling dizzy and off balance for 10 days. Patient states that for the last 10 days he has had this head carroll sensation and fullness feeling in his head and when he walks he feels like he is falling to the left and often needs to catch himself. He states that he has been staying in bed more over the weekend because he is afraid of falling. He did have a televisit with his PCP on Sunday to review his symptoms and that she thought it could be his sinuses are related to allergies and sent in medications to help with allergies. However he states he has had allergies before and this feeling of off-balance does not feel like that. He does have a history of many years and denies that this feels similar to when he has vertigo with Mnire's. He does not take a blood thinner. He denies a headache, visual disturbances, chest pain, difficulty breathing, abdominal pain, vomiting. He reports associated nausea And uses Zofran at home. Review of Systems Constitutional: denies: Fever Cardiac: denies: Chest pain / pressure, Palpitations Respiratory: denies: Dyspnea GI: denies: Abdominal Pain Musculoskeletal: denies: Back pain Neurologic: denies: Headache PD PAST MEDICAL HISTORY - Past Medical History Past Medical History: Yes Cardiovascular: None Respiratory: Shortness of breath, Other Neuro: Migraines, Peripheral neuropathy Endocrine/Autoimmune: Type 2 diabetes GI: GERD, Ulcers, Chronic constipation, Cholelithiasis : Benign prostate hypertrophy HEENT: None Psych: Depression, Anxiety Musculoskeletal: Osteoarthritis Derm: None - Past Surgical History Past Surgical History: Yes General: Other - Present Medications Home Medications: Ambulatory Orders Medication Instructions Recorded Confirmed Dasatinib [Sprycel] 50 mg ORAL DAILY MDD ON HOLD FOR 4 05/04/21 06/10/21 WEEKS Diazepam [Valium] 10 mg PO DAILY PRN 05/04/21 05/17/22 Famotidine 40 mg PO DAILY PRN 05/04/21 06/10/21 HYDROcodone/ACET 10/325 [[place] 10 1 tablet PO Q4-6H PRN 05/04/21 05/17/22 mg/325 mg] Ondansetron Odt [Zofran Odt] 4 mg TL Q6H PRN 05/04/21 06/10/21 Senna [Senokot] 17.2 mg PO TID PRN 05/04/21 05/17/22 Magnesium Chloride [Magnesium] 1 tab PO PRN PRN 06/02/21 06/10/21 Tamsulosin [Flomax] 0.4 mg PO DAILY 05/17/22 05/17/22 - Allergies Allergies/Adverse Reactions: Allergies Allergy/AdvReac Type Severity Reaction Status Date / Time cat dander Allergy Respiratory Verified 06/22/21 08:02 - Social History Does the pt smoke?: No Smoking Status: Never smoker Does the pt drink ETOH?: No Does the pt have substance abuse?: No - Immunizations Immunizations are current?: Yes - POLST Patient has POLST: No PD ED PE NORMAL - General General: Alert and oriented X 3, No acute distress, Well developed/nourished - HEENT HEENT: Atraumatic, PERRL, EOMI, Moist mucous membranes, Pharynx benign, Other (No nystagmus) - Neck Neck: Supple, no meningeal sign - Cardiac Cardiac: RRR - Respiratory Respiratory: No respiratory distress, Clear bilaterally - Abdomen Abdomen: Soft, Non tender - Derm Derm: Warm and dry - Extremities Extremities: No deformity - Neuro Neuro: Alert and oriented X 3, 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 Relevant findings are: Rate 61, normal sinus rhythm, no STEMI, QTc 398 Rate: Rate (enter#) (61) Rhythm: NSR Intervals: No: Prolonged QT Ischemia: No: ST elevation c/w ischemia - Labs Labs: Laboratory Tests 07/31/22 07/31/22 05:30 05:30 WBC 6.7 RBC 4.74 Hgb 13.7 L Hct 41.5 L MCV 87.6 MCH 28.9 MCHC 33.0 RDW 13.2 Plt Count 333 MPV 9.4 Neut # (Auto) 5.1 Lymph # (Auto) 0.9 L [place] # (Auto) 0.4 Eos # (Auto) 0.2 Baso # (Auto) 0.1 Absolute Nucleated RBC 0.00 Nucleated RBC % 0.0 Sodium 139 Potassium 4.6 Chloride 106 Carbon Dioxide 28 Anion Gap 5.0 L BUN 22 H Creatinine 0.9 Estimated GFR (MDRD) 83 L Glucose 293 H Calcium 9.7 Total Bilirubin 0.4 AST 12 ALT 23 Alkaline Phosphatase 77 Total Protein 7.3 Albumin 4.5 Globulin 2.8 Albumin/Globulin Ratio 1.6 Lipase 33 PD Medical Decision Making - ED course Complexity details: reviewed results, re-evaluated patient, d/w patient ED course: Is a 71-year-old male presenting for evaluation of a head carroll sensation, feeling off balance, having difficulty with ambulating as he feels he is falling to the left.He is not on a blood thinner. He has had no head injuries. His NIH is 0. He would be outside of any treatment window is for stroke given symptoms for 10 days.On exam he is found to be ataxic and needs to catch himself when he is walking. Therefore a CT head was obtained with angios of head and neck to evaluate for vasculature or signs of bleed. I also reviewed these images. Preliminary reports were reviewed and there is no significant stenosis or occlusion Or signs of a bleed.Labs including CBC and chemistries were obtained, significant findings include an elevated glucose of 298. Patient does not appear to be in DKA. His EKG is a sinus rhythm. I reviewed his chest x- ray - heart size is normal, no consolidation or effusion.Given patient's symptoms and exam findings I believe a MRI is warranted to evaluate for a stroke.MRI order was placed and is pending. Patient will be signed out at shift change to oncoming provider. Departure - Departure Clinical Impression: Ataxia Condition: Stable
[2022-07-31 05:48] LABS: ALBUMIN 4.5 g/dL (3.2-5.5); ALBUMIN/GLOBULIN RATIO 1.6 (1.0-2.2); BILIRUBIN,TOTAL 0.4 mg/dL (0.2-1.0); CALCIUM 9.7 mg/dL (8.5-10.3); CREATININE 0.9 mg/dL (0.6-1.2); POTASSIUM 4.6 mmol/L (3.5-5.0); TOTAL PROTEIN 7.3 g/dL (6.7-8.2)
[2022-07-31] MEDS ORDERED: MECLIZINE 12.5 MG TABLET PO STA ×2 (05:52→14:04)
[2022-07-31] MEDS ORDERED: ONDANSETRON 4 MG/2 ML VIAL IVP STA (05:52)
[2022-07-31] MEDS ORDERED: iohexoL-300 100 ML VIAL IVP ONE (06:24)
--- NOTE | 2022-07-31 07:46 | CT Report ---
PROCEDURE: ANGIO NECK W INDICATIONS: dizzy/history of CML CONTRAST: 100 ML OMNI 300 TECHNIQUE: After the administration of intravenous contrast, 1.5 mm axial sections acquired from the aortic arch to the [place] of [place]. Coronal 3-D maximum intensity projection (MIP) and/or volume rendering ref ormats were then performed. For radiation dose reduction, the following was used: automated exposur e control, adjustment of mA and/or kV according to patient size. COMPARISON: CTA head with and without contrast dated 07/31/2022. FINDINGS: Image quality: Excellent. Carotid system: The great vessels demonstrate a conventional anatomy as they arise from the aortic a rch. The origins of the common carotid arteries appear patent. The common carotid arteries demonstr ate normal calibers and courses. The bifurcation regions appear normal bilaterally. There are mild b ilateral less than 50% proximal internal carotid artery stenoses, left greater than right. The stenot ic plaque and soft plaque. Posterior circulation: The origins of the vertebral arteries appear patent. The more superior porti ons of the vertebral arteries demonstrate normal course and caliber. They join to form a normal appe aring basilar artery. Soft tissues: Visualized neck soft tissues demonstrate no suspicious abnormalities. The thyroid is normal in size and there are no incidental findings. There are small patchy groundglass opacity nodul es bilaterally in the apices. Bones: No suspicious bony lesions. Visualized cervical spine appears normally aligned. IMPRESSION: 1. Bilateral mild, less than 50% proximal internal carotid artery stenotic disease. 2. Biapical small groundglass opacities may indicate atypical infection or inflammatory process. Comment: Please refer to separate report for CTA Head findings. Findings are concordant with preliminary interpretation provided by [facility]. The estimate of stenosis included in the report of the imaging study was calculated using the NASCET method CLINICAL RECOMMENDATION STATEMENTS: In patients <35 years with an ITN detected on CT, MRI, or extrathyroidal ultrasound, the Committee re commends further evaluation with dedicated thyroid ultrasound if the nodule is "e1 cm and has no susp icious imaging features, and if the patient has normal life expectancy. In patients "e35 years with an ITN detected on CT, MRI, or extrathyroidal ultrasound, the Committee r ecommends further evaluation with dedicated thyroid ultrasound if the nodule is "e1.5 cm and has no s uspicious imaging features, and if the patient has normal life expectancy. (ACR, 2014) Reviewed by: Huan Loomis MD on 07/31/2022 7:44 AM PDT Approved by: Huan Loomis MD on 07/31/2022 7:44 AM PDT Station ID: [id number]
--- NOTE | 2022-07-31 07:49 | CT Report ---
PROCEDURE: ANGIO HEAD W/WO INDICATIONS: dizzy/history of CML CONTRAST: 100 ML OMNI 300 TECHNIQUE: Precontrast 4.5 mm thick angled axial sections acquired from the foramen magnum to the vertex. Afte r the administration of intravenous contrast, 1 mm thick sections acquired through the [place] of [place] is. Postcontrast 4.5 mm thick sections then re-acquired from the foramen magnum to the vertex. 3-di mensional yijwxqb-kelhfukfp-hbngjjrrkb (MIP) and/or volume rendering reformats were acquired of the c entral intracranial vasculature. For radiation dose reduction, the following was used: automated ex posure control, adjustment of mA and/or kV according to patient size. COMPARISON: CTA neck from the same date FINDINGS: Image quality: Excellent. Anterior circulation: Intracranial internal carotid arteries are normal in size and flow. The flow within the paired anterior cerebral arteries is normal and symmetric. The flow within the middle cer ebral arteries is normal and symmetric. The anterior communicating artery is seen. No aneurysms are seen. Posterior circulation: Visualized portions of the vertebral arteries demonstrate normal caliber, and join to form a normal appearing basilar artery. Flow within the posterior cerebral arteries is norm al and symmetric. No aneurysms are seen. CSF spaces: Ventricles are normal in size and shape. Basal cisterns are patent. No extra-axial flu id collections. Brain: No midline shift. No intracranial bleeds or masses. Tabares-white matter interface appears int act. Skull and face: Calvarium and facial bones appear intact, without suspicious lesions. Sinuses: Visualized sinuses and mastoids are clear. IMPRESSION: 1. No evidence acute intracranial process. 2. Unremarkable CTA head. No stenosis, aneurysm, occlusion, or focal filling defect. Comment: Please refer to separate report for CTA Neck findings. Findings are concordant with preliminary interpretation provided by [facility]. Reviewed by: Huan Loomis MD on 07/31/2022 7:47 AM PDT Approved by: Huan Loomis MD on 07/31/2022 7:47 AM PDT Station ID: [id number]
--- NOTE | 2022-07-31 08:02 | XRAY Report ---
PROCEDURE: Chest 1 View X-Ray INDICATIONS: dizzy TECHNIQUE: One view of the chest was acquired. COMPARISON: 07/21/2021 FINDINGS: Surgical changes and devices: None. Lungs and pleura: No pleural effusions or pneumothorax. Lungs are clear. Mediastinum: Mediastinal contours appear normal. Heart size is normal. Bones and chest wall: No suspicious bony lesions. Overlying soft tissues appear unremarkable. IMPRESSION: 1. No evidence acute pulmonary process. Findings are concordant with preliminary interpretation provided by [facility]. Reviewed by: Huan Loomis MD on 07/31/2022 8:01 AM PDT Approved by: Huan Loomis MD on 07/31/2022 8:01 AM PDT Station ID: [id number]
--- NOTE | 2022-07-31 12:32 | MRI Report ---
PROCEDURE: BRAIN WO INDICATIONS: ataxia x 10 days/history of CML TECHNIQUE: Noncontrast axial T1 spin echo, axial T2 fast spin echo, sagittal and axial FLAIR, coronal T2 fast sp in echo, axial gradient echo, axial diffusion and ADC through the brain. COMPARISON: Same-day CT and CTA FINDINGS: Image quality: Good CSF spaces: Basal cisterns are patent. Lateral ventricles are symmetric. Volume: Periventricular white matter signal abnormality is commonly seen with chronic microangiopathy . Volume loss is present. These findings are mild to moderate. Brain: No intracranial hemorrhage. Tabares-white differentiation is grossly maintained. Craniofacial structures: No displaced fracture. Sinuses are clear. Orbits are intact. IMPRESSION: No evidence of acute infarct or hematoma. Consider future contrast-enhanced MRI if there is concern f or intracranial malignancy, given provided history. Reviewed by: Ludin Larson MD on 07/31/2022 12:31 PM PDT Approved by: Ludin Larson MD on 07/31/2022 12:31 PM PDT Station ID: [id number]
[2022-07-31 13:28] VITALS: BP 126/65
--- NOTE | 2022-07-31 13:57 | ED Physician Documentation ---
ED Addendum - Addendum Addendum: 07/31/22 13:58 Patient was signed on Sunday with Dr. Paul awaiting reevaluation after MRI. MRI does not show any acute abnormalities. States that the dizziness has resolved. He is ambulating with a normal gait. He does feels fullness in his sinuses and does have an opacified right maxillary sinus on CT and MRI. He has been blowing his nose more than usual, feels pressure on the side of his face. We will trial him on antibiotics for this and have him follow-up with his doctor for further care. Patient is ambulating quite well without any assistive devices in the emergency department. No focal neurological deficits Patient counseled regarding signs and symptoms for which I believe and urgent re- evaluation would be necessary. Patient with good understanding of and agreement to plan and is comfortable going home at this time This document was made in part using voice recognition software. While efforts are made to proofread this document, sound alike and grammatical errors may occur. Departure - Departure Disposition: Home, Self Care Clinical Impression: Dizziness Sinusitis Qualifiers: Sinusitis location: unspecified location Chronicity: unspecified Qualified Code(s): J32.9 - Chronic sinusitis, unspecified Condition: Stable Instructions: ED Dizziness UKO, ED Sinusitis Abx Tx Follow-Up: your,doctor in 1 week [Other] Prescriptions: Amox/Clav 875/125 [Augmentin] 1 tab PO Q12H #20 tablet Meclizine HCl [Motion Sickness] 25 mg PO Q6H PRN #30 tablet PRN Reason: Dizziness Comments: Your prescriptions were sent to the [facility] pharmacy. Please follow-up with your doctor for further care. We will try you on antibiotics for a potential sinus infection, you do have a large amount of material in your right maxillary sinus. We will also place you on meclizine as that seems to help your symptoms here. Your MRI and CT scans do not show any acute abnormalities. If there is concern for possible metastatic disease, your doctor may want to consider a brain MRI with contrast.
== END 2022-07-31 14:17 | disposition home or self-care (01) ==
LOC: ED 04:50
DX: R27.0 Ataxia, unspecified (principal); J32.9 Chronic sinusitis, unspecified
CPT/HCPCS: 36415; 70496; 70498; 70551; 71045; 80053; 83690; 85025; 93005; 96374; 99283; 99284; A9270; Q9967

== ENCOUNTER 2022-08-14 09:09 | Day surgery (SDC) | payer MEDICARE ==
[~2022-08-14 09:09] MED LIST: PROPOFOL 500 MG/50 ML 500 MG/50 ML VIAL ONE
--- NOTE | 2022-08-14 09:17 | ANESTHESIA ---
Pre-Anesthesia VS, & Labs - Diagnosis braun's - Procedure EGD Height: 6 ft 1 in - NPO >8 hours Home Medications and Allergies Dasatinib [Sprycel] 50 mg ORAL DAILY MDD ON HOLD FOR 4 WEEKS 05/04/21 Diazepam [Valium] 10 mg PO DAILY PRN 05/04/21 Famotidine 40 mg PO DAILY PRN 05/04/21 HYDROcodone/ACET 10/325 [[place] 10 mg/325 mg] 1 tablet PO Q4-6H PRN 05/04/21 Ondansetron Odt [Zofran Odt] 4 mg TL Q6H PRN 05/04/21 Senna [Senokot] 17.2 mg PO TID PRN 05/04/21 Magnesium Chloride [Magnesium] 1 tab PO PRN PRN 06/02/21 Tamsulosin [Flomax] 0.4 mg PO DAILY 05/17/22 Allergies/Adverse Reactions: Allergies Allergy/AdvReac Type Severity Reaction Status Date / Time cat dander Allergy Respiratory Verified 06/22/21 08:02 Anes History & Medical History - Anesthetic History Anesthesia Complications: reports: No previous complications - Medical History Cardiovascular: reports: None Pulmonary: reports: Shortness of breath, Other (pleural effusions) Gastrointestinal: reports: GERD, Ulcers, Chronic constipation, Cholelithiasis Urinary: reports: Benign prostate hypertrophy Neuro: reports: Migraines, Peripheral neuropathy Musculoskeletal: reports: Osteoarthritis Endocrine/Autoimmune: reports: Type 2 diabetes Skin: reports: None Smoking Status: Never smoker Psychosocial: reports: Anxiety History of Cancer?: Yes (CML) - Surgical History General: reports: Other Exam General: Alert, Oriented x3, Cooperative Dental: WNL Mouth Opening: Greater than 4 Fingerbreadths Neck Mobility: Normal Mallampati classification: II Thyromental Distance: greater than 6 cm Respiratory: Lungs clear Cardiovascular: Regular rate, Normal S1, Normal S2 Plan Anesthesia Type: Total IV Consent for Procedure(s) Verified and Reviewed: Yes Code Status: Attempt Resuscitation ASA classification: 3-Severe systemic disease Is this case an emergency?: No
[2022-08-14] MEDS ORDERED: LACTATED RINGERS 1,000 ML IV ONE ×2 (09:38→10:41)
--- NOTE | 2022-08-14 10:05 | HISTORY & PHYSICAL EXAMINATION ---
Chief Complaint - Chief Complaint Chief Complaint: history gerd and barretts History of Present Illness - History Obtained From Records Reviewed: yes History obtained from: pt Exam Limitations: none - History of Present Illness HPI Comment/Other: here for surveillance egd for barretts. no problems History - Past Medical History Cardiovascular: reports: None Respiratory: reports: Shortness of breath, Other Neuro: reports: Migraines, Peripheral neuropathy Endocrine/Autoimmune: reports: Type 2 diabetes GI: reports: GERD, Ulcers, Chronic constipation, Cholelithiasis : reports: Benign prostate hypertrophy HEENT: reports: None Psych: reports: Depression, Anxiety Musculoskeletal: reports: Osteoarthritis Derm: reports: None MRSA Hx?: No - Past Surgical History General: reports: Colonoscopy, Other - Family & Social History Family History: Mother: (lung cancer 52), Alzheimer's Disease ( at 82 ), Father: , CVA/TIA ( at 86), Sister: Living Situation: Alone - POLST Patient has POLST: No Meds/Allgy - Home Medications Home Medications: Ambulatory Orders Medication Instructions Recorded Confirmed Dasatinib [Sprycel] 50 mg ORAL DAILY MDD ON HOLD FOR 4 05/04/21 06/10/21 WEEKS Diazepam [Valium] 10 mg PO DAILY PRN 05/04/21 05/17/22 Famotidine 40 mg PO DAILY PRN 05/04/21 06/10/21 HYDROcodone/ACET 10/325 [[place] 10 1 tablet PO Q4-6H PRN 05/04/21 05/17/22 mg/325 mg] Ondansetron Odt [Zofran Odt] 4 mg TL Q6H PRN 05/04/21 06/10/21 Senna [Senokot] 17.2 mg PO TID PRN 05/04/21 05/17/22 Magnesium Chloride [Magnesium] 1 tab PO PRN PRN 06/02/21 06/10/21 Tamsulosin [Flomax] 0.4 mg PO DAILY 05/17/22 05/17/22 Amox/Clav 875/125 [Augmentin] 1 tab PO Q12H #20 tablet 07/31/22 Meclizine HCl [Motion Sickness] 25 mg PO Q6H PRN #30 tablet 07/31/22 - Allergies Allergies/Adverse Reactions: Allergies Allergy/AdvReac Type Severity Reaction Status Date / Time cat dander Allergy Respiratory Verified 06/22/21 08:02 Review of Systems - Other Findings Other Findings: 10 pt ros as above otherwise unremarkable Exam - Vital Signs Reviewed Vital Signs: Yes Vital Signs: Vital Signs x48h Temp Pulse Resp BP Pulse Ox O2 Flow Rate 08/14/22 09:43 36.2 C L 77 16 158/79 H 96 0 - Physical Exam General Appearance: positive: No acute distress, Alert Eyes Bilateral: positive: PERRL, EOMI ENT: positive: No signs of dehydration Neck: positive: No JVD, Trachea midline Respiratory: positive: No respiratory distress, Breath sounds nml Cardiovascular: positive: Regular rate & rhythm Abdomen: positive: Non-tender Neurologic/Psychiatric: positive: Oriented x3 Conclusion/Plan - Problem List (1) Barretts esophagus Conclusion/Plan: plan egd with biopsies. parq held and consent obtained
[2022-08-14] MEDS ORDERED: LIDOCAINE-MPF 2% 5 ML VIAL ONE (10:10)
[2022-08-14 10:58] VITALS: BP 127/59
--- NOTE | 2022-08-14 11:27 | ANESTHESIA POST OP EVALUATION ---
Anesthesia Post Eval - Post Anesthesia Eval Vitals: Last Vital Signs Temp 36.8 C 08/14/22 10:56 Pulse 78 08/14/22 10:56 Resp 16 08/14/22 10:56 BP 127/59 L 08/14/22 10:56 Pulse Ox 100 08/14/22 10:56 O2 Flow Rate 0 08/14/22 09:43 CV Function Including HR & BP: Stable Pain Control: Satisfactory Nausea & Vomiting: Negative Mental Status: Baseline Respiratory Status: Airway Patent Hydration Status: Satisfactory Anesthesia Complications: None
== END 2022-08-14 09:10 | disposition home or self-care (01) ==
LOC: SDS 09:09
PROVIDERS: ATTEND Surgery
PROC: 0DB78ZX Excision of Stomach, Pylorus, Via Natural or Artificial Opening Endoscopic, Diagnostic (ICD-10-PCS; 2022-08-14)
PROC: 0DB38ZX Excision of Lower Esophagus, Via Natural or Artificial Opening Endoscopic, Diagnostic (ICD-10-PCS; principal; 2022-08-14 09:45)
DX: K22.70 Barrett's esophagus without dysplasia (principal); K21.9 Gastro-esophageal reflux disease without esophagitis; K44.9 Diaphragmatic hernia without obstruction or gangrene; K31.7 Polyp of stomach and duodenum; E11.42 Type 2 diabetes mellitus with diabetic polyneuropathy; N40.0 Benign prostatic hyperplasia without lower urinary tract symptoms; F41.9 Anxiety disorder, unspecified
CPT/HCPCS: 43239; J7120